=== PATIENT | female | born 1940 | race Caucasian/White ===

== ENCOUNTER 2016-09-17 20:28 | Inpatient (IN) | payer MEDICARE, BC ==
[~2016-09-17] VITALS: Ht 156.2 cm; Wt 85.0 kg
[~2016-09-17 20:28] MED LIST: ASPIRIN 81 MG E81 MG PO; BAYER CHEWABLE81 MG PO; BENICAR20 MG PO; LEVAQUIN250 MG PO; LOMOTIL TABLET1 TAB PO; NORCO 10/325 TA1 TA1 PO; PLAVIX75 MG PO; PREDNISONE10 MG PO; ROBAXIN-750750 MG PO
[2016-09-17 21:45] LABS: BASOPHILS 0.1 % (0.0-2.0); EOSINOPHILS 0.2 % (0-7); HEMATOCRIT 46.3 % (36.0-48.0); HEMOGLOBIN 15.4 g/dL (12-16); IMMATURE GRANULOCYTES 0.3 % (0-5); LYMPHOCYTES 11.2 % (15-50); MCH 29.8 pg (26.0-34.0); MCHC 33.3 g/dL (31.0-37.0); MCV 89.6 fL (80.0-100.0); MEAN PLATELET VOLUME 9.9 fL (7.4-10.4); MONOCYTES 8.3 % (2-11); NEUTROPHILS 79.9 % (40-80); PLATELET COUNT 271 10x3/uL (130-400); RBC 5.17 10x6/uL (4.00-5.40); RDW 14.5 % (11.5-14.5); WBC 18.5 10x3/uL (4.8-10.8)
[2016-09-17 22:12] LABS: APPEARANCE HAZY (CLEAR); BILIRUBIN NEGATIVE (NEGATIVE); COLOR STRAW (YELLOW); GLUCOSE 250 mg/dL (NEGATIVE); KETONE NEGATIVE (NEGATIVE); LEUKOCYTE ESTERASE TRACE (NEGATIVE); NITRITE NEGATIVE (NEGATIVE); PROTEIN 1+ mg/dL (NEGATIVE); UROBILINOGEN NORMAL (NORMAL)
[2016-09-17 22:13] LABS: BACTERIA MANY /hpf (NONE SEEN)
[2016-09-17 22:17] LABS: ALBUMIN 3.6 g/dL (3.4-5.0); ANION GAP 13.3 mmol/L (8-16); BILIRUBIN - TOTAL 0.42 mg/dL (0.2-1.3); CALCIUM 9.8 mg/dL (8.5-10.1); CARBON DIOXIDE 27.3 mmol/L (21.0-32.0); CREATININE - SERUM 1.1 mg/dL (0.6-1.3); POTASSIUM - SERUM 4.6 mmol/L (3.5-5.1); PROTEIN - SERUM 7.7 g/dL (6.4-8.2)
[2016-09-18] VITALS (13 sets, daily range): BP systolic 102–148; BP diastolic 54–74; Ht 156.2 cm; Wt 85.0 kg
[2016-09-18] MEDS ORDERED: GLIMEPIRIDE1 MG PO (00:01)
--- NOTE | 2016-09-18 00:46 | NUR ---
PATIENT RECEIVED TO ROOM FROM ER VIA WHEELCHAIR WITH HOSPITAL STAFF. AAOX4. RR EVEN AND UNLABORED. 0 S/S OF DISTRESS. IMMOBILIZER TO RUE. IV TO LEFT AC PATENT WITH NO REDNESS OR SWELLING. ADMIT COMPLETE AND PATIENT ORIENTED TO ROOM AND CALL LIGHT. DILAUDID GIVEN FOR PAIN OF AN 8/10 PER ORDER. WILL REASSESS. NO OTHER NEEDS AT THIS TIME.
--- NOTE | 2016-09-18 06:09 | NUR ---
DILAUDID GIVEN FOR PAIN. WILL REASSESS.
--- NOTE | 2016-09-18 07:30 | NUR ---
PT LYING IN BED WITH NO ACUTE DISTRESS DOES COMPLAIN OF PAIN TO RIGHT SHOULDER WILL GIVE DILAUDID PER IV INJECTION ORDERED. SLING IN PLACE
--- NOTE | 2016-09-18 07:45 | NUR ---
PATIENT LAYING ON HER BACK IN BED. FACE GRIMMACED. PATIENT USING A GREEN ORAL CARE SWAB WETTING HER MOUTH. PATIENT STATED SHE IS WAITING FOR SURGERY. PATIENT DENIES NEEDS. BED IN LOWEST POSITION, CALL LIGHT IN REACH. BED RAILS UP X'S 2.
--- NOTE | 2016-09-18 08:30 | NUR ---
BIOMETRICS SPECIALIST ROUNDS PER DR HUGHES AWAITING LAB WORK TO DETERMINE IF SURGERY TODAY POSSIBLE. PAIN CONTROLLED AT THIS TIME
[2016-09-18 09:58] LABS: BASOPHILS 0.2 % (0.0-2.0); EOSINOPHILS 0.6 % (0-7); HEMATOCRIT 43.2 % (36.0-48.0); HEMOGLOBIN 13.8 g/dL (12-16); IMMATURE GRANULOCYTES 0.2 % (0-5); LYMPHOCYTES 24.6 % (15-50); MCH 29.2 pg (26.0-34.0); MCHC 31.9 g/dL (31.0-37.0); MCV 91.3 fL (80.0-100.0); MEAN PLATELET VOLUME 10.3 fL (7.4-10.4); MONOCYTES 10.9 % (2-11); NEUTROPHILS 63.5 % (40-80); PLATELET COUNT 256 10x3/uL (130-400); RBC 4.73 10x6/uL (4.00-5.40); RDW 14.8 % (11.5-14.5)
[2016-09-18 10:09] LABS: WBC 12.4 10x3/uL (4.8-10.8)
[2016-09-18 10:22] LABS: ALBUMIN 3.3 g/dL (3.4-5.0); ANION GAP 13.7 mmol/L (8-16); BILIRUBIN - TOTAL 0.59 mg/dL (0.2-1.3); CALCIUM 8.9 mg/dL (8.5-10.1); CARBON DIOXIDE 23.6 mmol/L (21.0-32.0); CREATININE - SERUM 1.1 mg/dL (0.6-1.3); POTASSIUM - SERUM 4.3 mmol/L (3.5-5.1); PROTEIN - SERUM 6.6 g/dL (6.4-8.2)
--- NOTE | 2016-09-18 12:00 | NUR ---
PT RESTING IN BED NO ACUTE DISTRESS NOTED APPLIED O2 2LPM FOR DECREASED O2 SAT OF 87% ON ROOM AIR. HAS HX OF COPD.
--- NOTE | 2016-09-18 14:00 | NUR ---
PT TO GO TO OR FOR SURGICAL REPAIR OF RIGHT HUMEROUS HEAD FRACTURE. CONSENTS SIGNED PER DAUGHTER AND PREOP MEDS GIVEN
--- NOTE | 2016-09-18 14:10 | NUR ---
TO OR AT THIS TIME
--- NOTE | 2016-09-18 17:15 | NUR ---
PT READY TO TRANSFER TO ICU. ICU NURSE UNAVAILABLE TO TAKE REPORT. SHE IS TO CALL TO GET REPORT.
--- NOTE | 2016-09-18 17:35 | NUR ---
PT ARRIVED BY BED TO ROOM. SWITCHED OVER TO ICU BED. PLACED ON ICU MONITORS. RIGHT ARM IN SLING. BLOCK TO RIGHT SHOULDER INFUSING AT 6ML/HR. PT DENIES PAIN AT THIS TIME. PT IS DROWSY, BUT DOES FOLLOW COMMANDS AND ORIENTED TO PERSON. BILATERAL SCDs PLACED. LEFT AC PIV SALINE LOCKED AT THIS TIME. ICE PACK PLACED TO RIGHT SHOULDER. DRESSING IS C/D/I.
--- NOTE | 2016-09-18 18:05 | NUR ---
RESP THERAPY AT BEDSIDE. PT PLACED ON BIPAP 27/03.
--- NOTE | 2016-09-18 18:34 | NUR ---
16FR BRODERICK CATH PLACED WITHOUT DIFFICULTY. SAMPLE SENT TO LAB FOR UA
--- NOTE | 2016-09-18 18:47 | NUR ---
DR. RODRIGUES AT BEDSIDE. UPDATED ON PT'S STATUS.
[2016-09-18 19:16] LABS: APPEARANCE CLOUDY (CLEAR); BILIRUBIN NEGATIVE (NEGATIVE); COLOR YELLOW (YELLOW); GLUCOSE NEGATIVE (NEGATIVE); KETONE NEGATIVE (NEGATIVE); LEUKOCYTE ESTERASE 2+ (NEGATIVE); NITRITE POSITIVE (NEGATIVE); PROTEIN 1+ mg/dL (NEGATIVE); UROBILINOGEN NORMAL (NORMAL)
[2016-09-18 19:17] LABS: BACTERIA MANY /hpf (NONE SEEN); EPITHELIAL CELLS 0-5 /hpf (0-5); RED CELLS - URINE 0-5 /hpf (0-5); WHITE CELLS - URINE 25-50 /hpf (0-5)
--- NOTE | 2016-09-18 20:00 | NUR ---
2000: Pt rec'd resting HOB 30 degrees with eyes closed. Open briefly to verbal and nods head to questions. Pt moves x4 extrem weakly vs gravity. Pt grimmances with movement. S1S2 ST 110's on CM. Left PIV saline locked at this time. Pt UE PPPx2 = bilat. Pt feet dry and pulses obtained via doppler. Lungs with crackles heard in upper bases bilat with decreased based with auscultation. MMP and no cyanosis noted. ABD soft NT BS hypoactive x4. Dominguez to gravity with cloudy yellow UOP. SCDs on.
--- NOTE | 2016-09-18 22:00 | NUR ---
2200: Pt opens eyes to verbal and answers questions. Pt denies pain at this time. Pt remains with nerve block connected to CADD pump. Pt remains on Bipap with RR 14-16x with SPO2 97%. Dressing remains C/D/I.
[2016-09-19] VITALS (26 sets, daily range): BP systolic 79–152; BP diastolic 54–73
--- NOTE | 2016-09-19 02:15 | NUR ---
0215: Pt remains on Bipap 45% with RR16x with SPO2 97%. Pt opens eyes to verbal at this time and answers questions. Pt remains awake with questions, but quickly returns to sleep without stimulation. Pt remains with CADD pump with dressing intact. Right shoulder drsg intact with no s/s of bleeding or oozing. Pt does not c/o pain at this time.
--- NOTE | 2016-09-19 04:00 | NUR ---
0400: Pt awake and requesting to remove Bipap. Bipap mask off and pt placed on 026LNC to maintain SPO2 >92%. Pt oriented and answering all questions at this time. Encouraged DBC. Pt with strong non productive cough at this time.
[2016-09-19 05:45] LABS: BASOPHILS 0.1 % (0.0-2.0); EOSINOPHILS 0 % (0-7); HEMATOCRIT 41.6 % (36.0-48.0); IMMATURE GRANULOCYTES 0.2 % (0-5); LYMPHOCYTES 5.1 % (15-50); MCH 28.8 pg (26.0-34.0); MCHC 31.3 g/dL (31.0-37.0); MCV 92.2 fL (80.0-100.0); MONOCYTES 4.2 % (2-11); NEUTROPHILS 90.4 % (40-80); PLATELET COUNT 244 10x3/uL (130-400); RBC 4.51 10x6/uL (4.00-5.40); RDW 15.3 % (11.5-14.5); WBC 12.1 10x3/uL (4.8-10.8)
--- NOTE | 2016-09-19 06:00 | NUR ---
0600: Pt resting HOB 45 degrees with eyes open. Pt is alert and oriented. Pt w/o c/o at this time. Provided water per request. No difficulty with swallow. Pt remains ST 110's on CM. Pt remains on 026LNC with SPO2 97%. Encouraged DBC. No change in incision site from previous assessment.
[2016-09-19 06:05] LABS: ANION GAP 15.5 mmol/L (8-16); BILIRUBIN - TOTAL 0.6 mg/dL (0.2-1.3); CALCIUM 8.3 mg/dL (8.5-10.1); CARBON DIOXIDE 23.5 mmol/L (21.0-32.0); CREATININE - SERUM 1.3 mg/dL (0.6-1.3); MAGNESIUM - SERUM 1.9 mg/dL (1.8-2.4); PROTEIN - SERUM 6.8 g/dL (6.4-8.2); TROPONIN-I 0.026 ng/mL (0.000-0.060)
--- NOTE | 2016-09-19 07:15 | NUR ---
REPORT RECIEVED FROM MORTGAGE UNDERWRITER NURSE. PT RESTING IN BED WITH EYES CLOSED. RESPONDS TO VERBAL COMMANDS. ALERT AND ORIENTED. INTERSCALENE EPIDURAL INFUSING FENTANYL AT 6ML/HR. DENIES PAIN AT THIS TIME. DRESSING TO R SHOULDER C/D/I. ARM IN SLING. O2 AT 6L VIA NC. EXP WHEEZING NOTED TO UPPER LOBES BILAT. F/C PATENT WITH GABRIELLE COLORED URINE. SCDS ON. CALL LIGHT IN REACH. DENIES NEEDS AT THIS TIME. VSS. WILL CONTINUE TO ASSESS FOR CHANGES.
--- NOTE | 2016-09-19 08:30 | NUR ---
DR. DUARTE CALLED IN REGARDS TO PLAVIX ORDER DUE TO PT HAVING AN INTERSCALENE NERVE BLOCK FENTYNL INFUSION. STATED TO CONTACT DR. HUGHES IN REGARDS TO ADMINISTRATION. DR. HUGHES CALLED AND STATED TO CALL CARDIOLOGY AND GET THEIR OPINION. SPOKE WITH DR. FITZGERALD AND HE STATED IF STENT WAS LESS THAN SIX MONTHS AGO TO GIVEN PLAVIX IF NOT LESS THAN SIX MONTHS AGO TO HOLD PLAVIX. WILL NOTIFY DR. HUGHES.
--- NOTE | 2016-09-19 09:00 | NUR ---
DAUGHTER AT BEDSIDE. DENIES NEEDS AT THIS TIME. WILL CONTINUE TO ASSESS.
--- NOTE | 2016-09-19 14:17 | NUR ---
Is the patient Alert and Oriented? Yes 0 * How many steps to enter\exit or inside your home? RAMP 0 * PCP DR. NEAL 0 * Pharmacy [facility] 0 * Preadmission Environment Home Alone 0 * ADLs Independent 0 * Equipment Cane Rolling Walker 0 * List name and contact numbers for known caregivers / representatives who currently or will assist patient after discharge: DAUGHTER: MANJU RIBERA [phone] 0 * Community resources currently utilized None 0 * Additional services required to return to the preadmission environment? Yes 0 * Can the patient safely return to the preadmission environment? No 0 * Has this patient been hospitalized within the prior 30 days at any hospital? No PATIENT WAS LIVING AT HOME PRIOR TO COMING TO THE HOSPITAL. HER DAUGHTER, BACILIO NUNES IS NOW HER POA AND AT BEDSIDE. PATIENT STATES HER PCP IS DR. NEAL. SHE GETS HER MEDS FROM THE [facility]. PATIENT HAS A CANE AND WALKER. SHE DENIES EVER HAVING HOME HEALTH. THERE IS A RAMP TO ENTER HER HOME. PATIENT'S FAMILY WOULD LIKE FOR PATIENT TO GO TO INPATIENT REHAB AT DISCHARGE. CM TO FOLLOW.
--- NOTE | 2016-09-19 15:00 | NUR ---
TURNED AND REPOSITIONED IN THE BED. FRESH ICE WATER PLACED ON BEDSIDE TABLE. WILL CONTINUE TO ASSESS.
--- NOTE | 2016-09-19 15:00 | NUR ---
DAUGHTER AT BEDSIDE. ADVANCE DIRECTIVE DOCUMENTS FILLED PER PT. COPY PLACED ON CHART AND NOTARIZED.
--- NOTE | 2016-09-19 17:00 | NUR ---
PT FINISHED WITH DINNER. 100% INTAKE. REPOSITIONED FOR COMFORT. PILLOWS PLACED UNDER EXT FOR SUPPORT. DENIES PAIN OR NEEDS AT THIS TIME. WILL CONTINUE TO ASSESS. CALL LIGHT IN REACH. BED IN LOW POSITION.
--- NOTE | 2016-09-19 20:00 | NUR ---
2000: Pt rec'd resting HOB 30 degrees with eyes open, PUPILS JAXSON+ bilat, alert and oriented. Pt denies pain at this time. SMCx4 = bilat per diem nurse with commands. Pt breathing 025LNC with RR 16-18x with SPO2 94%. Lungs with expiratory snoring in upper lung feilds with auscultation and decreased bases bilat. Encouraged DBC. Pt with strong non productive cough with command. S1S2 regular ST 110-115bpm on CM. Pt radial pulses palpable bilat. Pt lower extrem pulses difficult to obtain with palpation. Doppler used. Left AC PIV with NS TKVO. ABD soft NT BS active x4. Dominguez to gravity with approx 30 cc/hr cloudy yellow UOP. Right shoulder dressing intact with no s/s of bleeding or oozing. Epidural CADD seen from dressing dorsal to incision. No leaks seen or assessed. Pt denies pain, tingling, numbness, or parasthesia.
--- NOTE | 2016-09-19 23:55 | NUR ---
2355: Pt resting HOB 30 degrees with eyes closed. Open to verbal. No change in RESP/CV/NV status. Pt denies pain, tingling, numbness, or parasthesia. Pt remains ST on CM. Continues breathing 025LNC with SPO2 94%.
[2016-09-20] VITALS (23 sets, daily range): BP systolic 108–175; BP diastolic 7–126
--- NOTE | 2016-09-20 02:59 | NUR ---
0300: Pt awake, alert, and oriented. Pt denies pain, tingling, or numbness. No change in IVF/UOP. Remains SR 90's on CM at this time. Pt remains on 025LNC with shallow respirations 16-18x. Encouraged DBC. Pt using EZPAP with RT in room without difficulty.
--- NOTE | 2016-09-20 05:45 | NUR ---
0545: Pt easily arousable to verbal stimuli. Pt w/o c/o at this time. No change in RESP/CV/NV status. Pt remains SR 90's on CM. Breathing 16x 025LNC with SPO2 95%.
[2016-09-20 06:23] LABS: BASOPHILS 0.1 % (0.0-2.0); EOSINOPHILS 0 % (0-7); HEMATOCRIT 36.5 % (36.0-48.0); HEMOGLOBIN 11.6 g/dL (12-16); IMMATURE GRANULOCYTES 0.3 % (0-5); LYMPHOCYTES 7.5 % (15-50); MCH 28.9 pg (26.0-34.0); MCHC 31.8 g/dL (31.0-37.0); MEAN PLATELET VOLUME 9.9 fL (7.4-10.4); MONOCYTES 10.6 % (2-11); NEUTROPHILS 81.5 % (40-80); PLATELET COUNT 224 10x3/uL (130-400); RBC 4.01 10x6/uL (4.00-5.40); RDW 14.7 % (11.5-14.5); WBC 15.4 10x3/uL (4.8-10.8)
[2016-09-20 06:50] LABS: ALBUMIN 2.9 g/dL (3.4-5.0); BILIRUBIN - TOTAL 0.49 mg/dL (0.2-1.3); CARBON DIOXIDE 25.6 mmol/L (21.0-32.0); POTASSIUM - SERUM 4.6 mmol/L (3.5-5.1); PROTEIN - SERUM 6.6 g/dL (6.4-8.2)
--- NOTE | 2016-09-20 10:00 | NUR ---
SURGERY SALES SERVICE PROFESSIONAL AT BEDSIDE FOR ASSESSMENT - PLAN OT REMOVE INTERSKALENE BLOCK, PT TO AMBULATE PT IF POSSIBLE. WILL CONTINUE TO MONITOR
--- NOTE | 2016-09-20 10:08 | NUR ---
PT AT BEDSIDE TO ASSIST PT UP TO CHAIR - SEE PT FLOW SHEET
--- NOTE | 2016-09-20 10:45 | NUR ---
AHESTHESIA AUTOMOTIVE PARTS COUNTER ASSOCIATE AT BEDSIDE TO REMOVE INTERSKALEEN BLOCK. SITE COVERED WITH BANDAID - INSTRUCTED PT TO NOTIFY THIS RN IF PT NOTICES PAIN INCREASING. WILL CONTINE TO MONITOR AND CONT. POC.
--- NOTE | 2016-09-20 12:00 | NUR ---
PT SITTING UP IN CHAIR - EATING LUNCH - FAMILY VISITING - PT VOICED NO CONCERNS.
--- NOTE | 2016-09-20 13:51 | NUR ---
Pt TRANSERRED TO BED BY PT - PT RESTING WITH ARM IN SLING - AA&OX4. DENIES ANY PAIN. ENCOURAGED PT TO NOTIFY RN FOR PAIN ASSESSMENT. WILL CONT. PLAN OF CARE.
--- NOTE | 2016-09-20 13:57 | NUR ---
MOVED B/P CUFF TO RIGHT LOWER EXT. DUE TO IMPEDING ON LEFT AC IV.
--- NOTE | 2016-09-20 13:59 | NUR ---
DR. RODRIGUES PLANS TO HAVE BRONCH 09/21/2016. PT/FAMILY AWARE.
--- NOTE | 2016-09-20 18:00 | NUR ---
FAMILY AT BEDSIDE - ASSISTED PT WITH GROOMING -
--- NOTE | 2016-09-20 18:03 | NUR ---
PT CONTINUES TO DENY OR WANT PAIN MEDICATION - WILL CONT. POC
--- NOTE | 2016-09-20 20:00 | NUR ---
2000: Pt rec'd resting HOB 30 degrees with eyes open, PUPILS JAXSON+ bilat, alert and oriented. Pt denies pain at this time. SMCx4 = bilat rn visiting with commands. Pt breathing 026LNC with RR 16-18x with SPO2 94%. Lungs with expiratory wheezes in upper lung feilds with auscultation and decreased bases bilat. Encouraged DBC. Pt with strong non productive cough with command. S1S2 regular SR 90-95 bpm on CM. Pt radial pulses palpable bilat. Pt lower extrem pulses difficult to obtain with palpation. Doppler used. Left AC PIV with NS TKVO. ABD soft NT BS active x4. Dominguez to gravity with approx 30 cc/hr cloudy yellow UOP. Right shoulder dressing intact with no s/s of bleeding or oozing. Pt denies pain, tingling, numbness, or parasthesia.
--- NOTE | 2016-09-20 20:00 | NUR ---
2000: REVIEWED PLANNED BRONCHOSCOPY PROCEDURE WITH PATIENT. REVIEWED EXPECTED BENIFITS AND RISKS WITH PATIENT. PT VERBALIZED UNDERSTANDING AND GAVE VERBAL PERMISSION FOR CONSENT. PT UNABLE TO SIGN CONSENT BC SHE IS RIGHT HANDED AND UNABLE TO USE RIGHT HAND R/T RECENT SURGERY. PT WAS ABLE TO INTIAL CONSENT.
--- NOTE | 2016-09-20 20:30 | NUR ---
2030: LEFT ARM PIV LEAKING WHEN FLUSHED AT THIS TIME. PIV REMOVED AND NEW LEFT FA PIV STARTED AFTER MULTIPLE ATTEMPTS TO LEFT FOREARM WITH 22G IV CATH. NS CONNECTED AT 10 CC/HR.
--- NOTE | 2016-09-20 21:00 | NUR ---
2100: PT REPOSITIONED IN HOB >30 DEGREES AT THIS TIME WITH RIGHT ARM SUPPORTED WITH PILLOW SUPPORT. ORDERED MEDICATIONS ADMIN WITHOUT DIFFICULTY. PT HAS NO DIFFICULTY WITH SWALLOW AT THIS TIME.
[2016-09-21] VITALS (21 sets, daily range): BP systolic 101–186; BP diastolic 64–107
--- NOTE | 2016-09-21 | NUR ---
0000: Pt resting with eyes closed at this time. Easily arousable to verbal. Remains SR 80's on CM. Pt remains 026LNC with RR16x with SPO2 94%. No change in IVF/UOP at this time.
--- NOTE | 2016-09-21 02:00 | NUR ---
0200: Pt awake asking to "remove all this stuff." Pt restless in bed. Pt is oriented and alert. Pt partial linen change at this time and repositioned for comfort. Pt SCD's removed per request. All lines and monitors straightend. Pt states; "Thank you, everything was just getting to tight." Reassured patient and adjusted room enviroment. Pt returned to resting with eyes closed.
[2016-09-21 05:31] LABS: BASOPHILS 0 % (0.0-2.0); EOSINOPHILS 0 % (0-7); HEMATOCRIT 37.3 % (36.0-48.0); HEMOGLOBIN 11.7 g/dL (12-16); IMMATURE GRANULOCYTES 0.5 % (0-5); LYMPHOCYTES 7.6 % (15-50); MCH 28.9 pg (26.0-34.0); MCHC 31.4 g/dL (31.0-37.0); MCV 92.1 fL (80.0-100.0); MEAN PLATELET VOLUME 10.5 fL (7.4-10.4); MONOCYTES 6.7 % (2-11); NEUTROPHILS 85.2 % (40-80); PLATELET COUNT 234 10x3/uL (130-400); RBC 4.05 10x6/uL (4.00-5.40); RDW 14.9 % (11.5-14.5); WBC 13.2 10x3/uL (4.8-10.8)
[2016-09-21 05:44] LABS: APTT 26.3 SECONDS (22.8-39.4); INR 1.08 (0.85-1.17); PROTIME 13.9 SECONDS (11.6-15.0)
[2016-09-21 05:55] LABS: ALBUMIN 2.9 g/dL (3.4-5.0); BILIRUBIN - TOTAL 0.35 mg/dL (0.2-1.3); CARBON DIOXIDE 24.9 mmol/L (21.0-32.0); CREATININE - SERUM 1.1 mg/dL (0.6-1.3); PROTEIN - SERUM 7.1 g/dL (6.4-8.2)
[2016-09-21 05:57] LABS: ANION GAP 14.5 mmol/L (8-16); POTASSIUM - SERUM 5.4 mmol/L (3.5-5.1)
--- NOTE | 2016-09-21 06:00 | NUR ---
0600: PT RESTING WITH EYES CLOSED. OPEN TO VERBAL. PT IS ALERT AND ORIENTED. PT REMAINS SR ON CM. NO CHANGE IN IVF/UOP AT THIS TIME. PT REMAINS RR16X WITH SPO2 95% WITH 026LNC.
--- NOTE | 2016-09-21 07:00 | NUR ---
0730- REC'D PT AAO X4 LAYING IN BED. ASSESSMENT COMPLETE. SEE FLOWSHEET. LEFT PIV INTACT WITH NS @ 10 CC/HR INFUSING. BRODERICK CATHETER IN PLACE DRAINING YELLOW URINE. 0950- DR RODRIGUES AT BEDSIDE. BRONCHOSCOPY PLANNED FOR BEDSIDE. 1130- PT ON BIPAP PER ABG'S. 1350- BIPAP OFF. PT UP TO CHAIR PER P/T. 1520- BED BATH AND LINEN CHANGE COMPLETE. 1750- PT SITTING UP IN BED, EATING DINNER TRAY. DENIES PAIN OR NEEDS AT THIS TIME.
--- NOTE | 2016-09-21 19:52 | NUR ---
REPORT RECEIVED AND SHIFT ASSESSMENT COMPLETED. PT REPORTED A PAIN LEVEL OF 5 IN RIGHT SHOULDER FROM HER PROCEDURE. MEDICATION PROVIDED ORDERED. WILL REASSESS PAIN LEVEL AT 1957. PT HAS DRESSING ON RIGHT SHOULDER FROM SURGERY. DRESSING IS CDI. PT IS ALERT AND ORIENTED. WILL CONTINUE TO MONITOR.
--- NOTE | 2016-09-21 21:00 | NUR ---
PT RESTING IN ROOM. NO CHANGES IN STATUS AT THIS TIME. VSS WILL CONTINUE TO MONITOR.
--- NOTE | 2016-09-21 22:50 | NUR ---
2100 MEDS ADMINISTERED DURING 2100 HOUR. 2229 FSBS TAKEN. 267 SUGAR. 6 UNITS HUMALOG GIVEN PER SLIDING SCALE. VSS WILL CONTINUE TO MONITOR.
--- NOTE | 2016-09-21 23:00 | NUR ---
REASSESSMENT COMPLETED SEE ASSESSMENT FOR FULL DETAILS. PT RESTING IN ROOM. NO CHANGES IN STATUS AT THIS TIME. WILL CONTINUE TO MONITOR. PT IN VIEW OF NURSES STATION.
[2016-09-22] VITALS (13 sets, daily range): BP systolic 114–169; BP diastolic 64–88
--- NOTE | 2016-09-22 01:00 | NUR ---
PT RESTING IN ROOM. VSS. NO CHANGES IN STATUS AT THIS TIME. WILL CONTINUE TO MONITOR.
--- NOTE | 2016-09-22 03:07 | NUR ---
REASSESSMENT COMPLETED. SEE ASSESSMENT FOR FULL DETAILS. PT RESTING IN ROOM. SIDERAILS UP X2 VSS. WILL CONTINUE TO MONITOR.
[2016-09-22 05:44] LABS: BASOPHILS 0.1 % (0.0-2.0); EOSINOPHILS 0 % (0-7); HEMATOCRIT 37.5 % (36.0-48.0); HEMOGLOBIN 11.6 g/dL (12-16); IMMATURE GRANULOCYTES 0.7 % (0-5); LYMPHOCYTES 9.1 % (15-50); MCH 28.7 pg (26.0-34.0); MCHC 30.9 g/dL (31.0-37.0); MCV 92.8 fL (80.0-100.0); MEAN PLATELET VOLUME 10.8 fL (7.4-10.4); MONOCYTES 8.1 % (2-11); PLATELET COUNT 244 10x3/uL (130-400); RBC 4.04 10x6/uL (4.00-5.40); WBC 10.4 10x3/uL (4.8-10.8)
[2016-09-22 05:57] LABS: ALBUMIN 2.9 g/dL (3.4-5.0); ANION GAP 12.2 mmol/L (8-16); BILIRUBIN - TOTAL 0.34 mg/dL (0.2-1.3); CALCIUM 8.6 mg/dL (8.5-10.1); CARBON DIOXIDE 26.8 mmol/L (21.0-32.0); PROTEIN - SERUM 6.5 g/dL (6.4-8.2)
--- NOTE | 2016-09-22 07:15 | NUR ---
REPORT RECIEVED FROM CLINICAL LAB CLERK NURSE. PT RESTING IN BED QUIETLY. NO S/SX OF ACUTE DISTRESS NOTED AT THIS TIME. RESP EVEN AND UNLABORED. RECIEVING O2 AT 6L VIA NC. DENIES PAIN AT THIS TIME. DRESSING TO RIGHT SHOULDER C/D/I. ARM ELEVATED ON PILLOW. SHIFT ASSESSMENT COMPLETE PER FLOWSHEET. CALL LIGHT IN REACH. BED IN LOW POSITION. WILL CONTINUE TO ASSESS FOR CHANGES.
--- NOTE | 2016-09-22 09:15 | NUR ---
PT ASSITED TO CHAIR PER PT. TOLERATED WELL. WILL CONT TO ASSESS.
--- NOTE | 2016-09-22 09:34 | NUR ---
Nutrition follow-up: Diet: Regular PO intake ~75% average of last 9 meals Labs reviewed Wt: 200# PO intake is good at this time. RDN following.
--- NOTE | 2016-09-22 11:00 | NUR ---
PT EATING LUNCH IN CHAIR. DENIES NEEDS AT THIS TIME. CALL LIGHT IN REACH. WILL CONTINUE TO ASSESS.
--- NOTE | 2016-09-22 12:00 | NUR ---
ASSISTED BACK TO BED WITH THE HELP OF PT. CALL LIGHT IN REACH. TOTAL LINEN CHANGE PROVIDED. EXT'S ELEVATED ON PILLOWS. STATES SHE IS COMFORTABLE. ICE WATER PLACED IN REACH ALONG WITH PERSONAL BELONGINGS. WILL CONTINUE TO ASSESS.
--- NOTE | 2016-09-22 13:00 | NUR ---
REPOSITIONED FOR COMFORT. DENIES NEEDS.
--- NOTE | 2016-09-22 14:12 | NUR ---
REPORT CALLED [facility] ON [facility]. WILL TRASFER PT VIA W/C WITH THE ASSIST OF PT.
--- NOTE | 2016-09-22 14:30 | NUR ---
PT TAKEN VIA W/C TO [facility]. PT SETTLED IN ROOM. CALL LIGHT PLACED IN REACH. FAMILY AT BEDSIDE.
--- NOTE | 2016-09-22 14:52 | OP ---
PATIENT NAME: NELA HERNANDEZ MEDICAL RECORD: [id number] :38 LOCATION:[facility] [id number] ADMISSION DATE:09/18/16 SURGEON: NINA HUGHES MD DATE OF OPERATION: 09/18/2016 PREOPERATIVE DIAGNOSIS: A 4-part proximal humerus fracture of the right shoulder. POSTOPERATIVE DIAGNOSIS: A 4-part proximal humerus fracture of the right shoulder. PROCEDURE: Hemiarthroplasty of the right shoulder - Tornier. SURGEON: Nina Hughes MD ANESTHESIA: General. INTRAOPERATIVE COMPLICATIONS: None. SUMMARY OF PATHOLOGIC FINDINGS: As predicted on preoperative radiographs, the patient had a 4-part proximal humerus fracture, head splitting with greater and lesser tuberosities split as well. IMPLANTS USED: Tornier fracture hemiarthroplasty stem size 6.5 with a x 43 humeral head replacement. OPERATIVE SUMMARY IN DETAIL: After obtaining the appropriate preoperative orthopedic surgery consent as well as anesthetic consultation, evaluation and clearance, the patient was brought to the operating room and placed on the operating table in supine position. After adequate general laryngeal mask was administered, the patient was placed in the beach chair position. All pressure points were well padded. She was held firmly to the operating table using the vacuum pack suction system. Right upper extremity and shoulder were then prepped and draped in routine sterile fashion. The arm was held in Trimano arm holding device. Deltopectoral incision was made, taken down to the level of the clavipectoral fascia, which was incised. The deltoid was gently retracted over the broken proximal humerus using the brown retractor. The conjoined tendon was gently retracted medially. The fracture was identified. The greater and lesser tuberosities were tagged and controlled while the split articular fragments were removed. The cavity was copiously irrigated and all bone fragments were removed. Serial and sequential reaming and broaching were done. The patient did take the smallest size stem. The trial was put into place and thought to be perfect. The cement restrictor was put into place. The proximal canal was copiously irrigated and dried. The final component was cemented into place at 30 degrees of retroversion with the humeral head attached. This was reduced into the glenohumeral joint. The greater and lesser tuberosities were brought around back and in front. These were reapproximated using through stem, through bone, using a FiberWire. Having completed this, the deltopectoral incision was irrigated further and closed with #1 Vicryl followed by 2-0 Vicryl and skin inder. Sterile dressings were applied. The patient was awakened and taken to the recovery room in stable condition. All final needle and sponge counts were correct. TRANSINT:[id number] Voice Confirmation ID: [id number] DOCUMENT ID: [id number] OPERATIVE REPORT [id number] NELA HERNANDEZ MD, NINA MCKEE at 1452 CC: [id number] DICTATION DATE: 09/18/16 1640 CHEESE MAKER: 09/18/16 1822 ADM IN [facility] [address] [phone]
--- NOTE | 2016-09-22 15:00 | NUR ---
PT AWAKE AND ALERT NO DISTRESS NOTED RECIEVED TO ROOM FROM ICU SLING IN PLACE TO RIGHT ARM.
--- NOTE | 2016-09-22 15:42 | NUR ---
Patient Name: NELA HERNANDEZ Encounter No: [id number] : 1940 Primary Insurance: MEDICARE A & B Anticipated DC Date: UNKNOWN Planned Disposition: Home External Planned Provider: [facility] OP PT DCP follow-up note: CM RECEIVED CONSULT TO SPEAK WITH PT REGARDING POSSIBLE NEED FOR HOME DME EQUIPMENT. PT STATED SHE HAS ALL DME EQUIPMENT NEEDED AT HOME AND ALTHOUGH ORIGIONALLY HAD PLAN FOR IP REHAB, PT HAS NOW DECIDED SHE WOULD LIKE TO DC HOME AND GET OP PT FROM [facility]. SHE STATED SHE HAS HAD OP PT AT [facility] IN THE PAST AND HAD A GREAT EXPERIENCE. CM DISCUSSED WITH PT HER LIMITED AMOUNT OF [place] DISTANCE WITH PT WITH ADMISSION AND SAFETY OF DC HOME. SHE STATED THAT SHE THINKS SHE HAS ONLY BEING ABLE TO DO SO LITTLE WITH PT B/C SHE HAS BEEN IN THE ICU. SHE THINKS THAT SHE WILL BE ABLE TO PROGRESS WITH PT BEFORE DC AND THAT HOME WILL BE A SAFE DC PLAN. RUBÉN HAS RECEIVED NO MD ORDERS FOR OP PT AT THIS TIME, SO REFERRAL HAS NOT BEEN FAXED. WILL AWAIT DOCUMENTATION OF FURTHER PROGRESS WITH PT AND MD ORDERS. RUBÉN SPOKE WITH MARTY LEDEZMA RN, RUB[facility]N TO INFORM OF PT'S DC PLAN LISTED ABOVE, PT HAS NOW BEEN TRANSFERRED FROM ICU TO MED SURG UNIT. CASE MANAGEMENT WILL FOLLOW AND ASSIST WITH DC PLAN/NEEDS THEY ARISE. Bettie Wilkins RN
--- NOTE | 2016-09-22 18:23 | NUR ---
PT AWAKE AND ALERT ORINTED X 3 LUNGS WITH DIMINISHED SOUNDS NOTED.
--- NOTE | 2016-09-22 19:21 | NUR ---
LYING IN BED,WITHOUT DISTRESS.CALL LIGHT IN REACH
--- NOTE | 2016-09-22 20:26 | NUR ---
PRN PAIN MED GIVEN FOR C/O R ARM PAIN /, ALANA WELL, CL IN REACH
--- NOTE | 2016-09-22 21:07 | NUR ---
MEDS GIVEN PER MAR, ALANA WELL, SR'S UP X2, CL IN REACH
--- NOTE | 2016-09-22 23:20 | NUR ---
RESTING WITH EYES CLOSED, NC IN PLACE, HOB ELEVATED, NO DISTRESS NOTED, BRODERICK DRAINING, SR'S UP, CL IN REACH
[2016-09-23] VITALS: BP 166/70
--- NOTE | 2016-09-23 01:21 | NUR ---
CONTINUES TO REST WITH EYES CLOSED, NO DISTRESS NOTED, HOB ELEVATED, CL IN REACH
--- NOTE | 2016-09-23 03:10 | NUR ---
SOLUMEDROL GIVEN PER MAR, ALANA WELL, CL IN REACH
[2016-09-23 04:00] VITALS: BP 172/70
--- NOTE | 2016-09-23 05:16 | NUR ---
MEDS GIVEN PER MAR, ALANA WELL, SENIOR MECHANICAL DESIGN ENGINEER IN ROOM PERFORMING CATHETER CARE, PT DENIES NEEDS, CL IN REACH
[2016-09-23 06:34] LABS: BASOPHILS 0.1 % (0.0-2.0); EOSINOPHILS 0 % (0-7); HEMATOCRIT 38.7 % (36.0-48.0); IMMATURE GRANULOCYTES 1.7 % (0-5); LYMPHOCYTES 13.8 % (15-50); MCH 28.4 pg (26.0-34.0); MCV 91.7 fL (80.0-100.0); MEAN PLATELET VOLUME 10.4 fL (7.4-10.4); NEUTROPHILS 76.4 % (40-80); PLATELET COUNT 252 10x3/uL (130-400); RBC 4.22 10x6/uL (4.00-5.40); RDW 14.6 % (11.5-14.5); WBC 9.3 10x3/uL (4.8-10.8)
[2016-09-23 06:47] LABS: ALBUMIN 2.8 g/dL (3.4-5.0); ANION GAP 11.9 mmol/L (8-16); BILIRUBIN - TOTAL 0.44 mg/dL (0.2-1.3); CALCIUM 9.1 mg/dL (8.5-10.1); CARBON DIOXIDE 29.2 mmol/L (21.0-32.0); CREATININE - SERUM 0.9 mg/dL (0.6-1.3); POTASSIUM - SERUM 5.1 mmol/L (3.5-5.1); PROTEIN - SERUM 6.9 g/dL (6.4-8.2)
--- NOTE | 2016-09-23 07:20 | NUR ---
RECEIVED REPORT. ASSUMED CARE OF PATIENT. EYES OPEN, RESP EVEN AND UNLABORED, RECEIVING BREATHING TREATMENT AT THIS TIME. CALL LIGHT WITHIN REACH. NO DISTRESS.
[2016-09-23 08:28] VITALS: BP 144/66
--- NOTE | 2016-09-23 10:20 | NUR ---
DRESSING CHANGE PROVIDED AT THIS TIME TO RIGHT SHOULDER INCISION. AQUACELL SILVER DRESSING APPLIED ORDERED. TOLERATED DRESSING CHANGE WELL. NO DISTRESS.
[2016-09-23 11:49] VITALS: BP 157/58
[2016-09-23 15:45] VITALS: BP 161/70
[2016-09-23 16:12] LABS: AFB SPECIMEN PROCESSING Concentration (())
[2016-09-23 19:00] VITALS: BP 131/68
--- NOTE | 2016-09-23 20:22 | NUR ---
4 UNITS INSULIN GIVEN PER SLIDING SCALE FOR BS OF 247, ALANA WELL, CL IN REACH
--- NOTE | 2016-09-23 20:25 | NUR ---
ASSESSMENT COMPLETED, NO DISTRESS NOTED, DENIES NEEDS, CL IN REACH
--- NOTE | 2016-09-23 20:50 | NUR ---
MEDS GIVEN PER MAR, ALANA WELL, SR'S UP X2, CL IN REACH, WILL MONITOR
--- NOTE | 2016-09-24 01:33 | NUR ---
RESTING WITH EYES CLOSED, NC IN PLACE, HOB ELEVATED, NO DISTRESS NOTED, SR'S UP, CL IN REACH
[2016-09-24 04:00] VITALS: BP 157/59
[2016-09-24 05:54] LABS: BASOPHILS 0.1 % (0.0-2.0); EOSINOPHILS 0 % (0-7); HEMATOCRIT 40.2 % (36.0-48.0); HEMOGLOBIN 12.7 g/dL (12-16); IMMATURE GRANULOCYTES 2.9 % (0-5); LYMPHOCYTES 14.3 % (15-50); MCH 28.7 pg (26.0-34.0); MCHC 31.6 g/dL (31.0-37.0); MEAN PLATELET VOLUME 10.6 fL (7.4-10.4); MONOCYTES 8.1 % (2-11); NEUTROPHILS 74.6 % (40-80); PLATELET COUNT 261 10x3/uL (130-400); RBC 4.42 10x6/uL (4.00-5.40); RDW 14.3 % (11.5-14.5); WBC 7.7 10x3/uL (4.8-10.8)
[2016-09-24 06:12] LABS: ALBUMIN 2.8 g/dL (3.4-5.0); ANION GAP 12.3 mmol/L (8-16); BILIRUBIN - TOTAL 0.39 mg/dL (0.2-1.3); CALCIUM 8.8 mg/dL (8.5-10.1); CARBON DIOXIDE 30.9 mmol/L (21.0-32.0); CREATININE - SERUM 0.9 mg/dL (0.6-1.3); POTASSIUM - SERUM 5.2 mmol/L (3.5-5.1); PROTEIN - SERUM 6.4 g/dL (6.4-8.2)
--- NOTE | 2016-09-24 07:00 | NUR ---
REPORT RECIEVED ASSUMED CARE. PATIENT IN BED WITH IV INTACT. NO COMPLAINTS. CALL LIGHT WITHIN REACH.
[2016-09-24 08:17] VITALS: BP 150/94
[2016-09-24 11:17] LABS: FUNGUS STAIN Final report (())
[2016-09-24 13:55] VITALS: BP 157/72
[2016-09-24 16:05] VITALS: BP 156/67
--- NOTE | 2016-09-24 18:29 | NUR ---
PATIENT IN BED WITH IV INTACT. NO COMPLAINTS AT THIS TIME. BRODERICK INTACT. CALL LIGHT WITHIN REACH.
[2016-09-24 21:11] VITALS: BP 155/58
[2016-09-25 04:54] VITALS: BP 150/91
[2016-09-25 05:25] LABS: BASOPHILS 0.2 % (0.0-2.0); EOSINOPHILS 0 % (0-7); HEMATOCRIT 42.2 % (36.0-48.0); HEMOGLOBIN 13.4 g/dL (12-16); IMMATURE GRANULOCYTES 3.4 % (0-5); LYMPHOCYTES 11.5 % (15-50); MCH 28.6 pg (26.0-34.0); MCHC 31.8 g/dL (31.0-37.0); MEAN PLATELET VOLUME 10.3 fL (7.4-10.4); MONOCYTES 6.8 % (2-11); NEUTROPHILS 78.1 % (40-80); PLATELET COUNT 297 10x3/uL (130-400); RBC 4.69 10x6/uL (4.00-5.40); RDW 14.4 % (11.5-14.5)
[2016-09-25 05:37] LABS: APTT 22.9 SECONDS (22.8-39.4); INR 1.14 (0.85-1.17); PROTIME 14.5 SECONDS (11.6-15.0)
[2016-09-25 05:48] LABS: WBC 10.2 10x3/uL (4.8-10.8)
[2016-09-25 05:54] LABS: ALBUMIN 2.8 g/dL (3.4-5.0); BILIRUBIN - TOTAL 0.5 mg/dL (0.2-1.3); CALCIUM 8.5 mg/dL (8.5-10.1); CARBON DIOXIDE 31.2 mmol/L (21.0-32.0); CREATININE - SERUM 0.9 mg/dL (0.6-1.3); POTASSIUM - SERUM 5.2 mmol/L (3.5-5.1); PROTEIN - SERUM 6.3 g/dL (6.4-8.2)
--- NOTE | 2016-09-25 07:49 | NUR ---
LYING IN BED,WITHOUT DISTRESS.HOB 45 DEGREES.CALL LIGHT IN REACH,DOOR OPEN.
--- NOTE | 2016-09-25 08:09 | NUR ---
ASSESSMENT COMPLETE PT AWAKE AND ALERT ORINETED X 3 LUNGS WITH CRACKLES NOTED DIMINISHED BASES BILATERALLY HAS VERY DENSE SOUNDS TO LML. HRR NO ACUTE DISTRESS NTOED SURGICAL DRESSING IN PLACE TO UPPER RIGHT SHOULDER SURGERY SITE SLING IN PLACE WELL. NPO AT THIS TIME FOR POSSIBLE CT GUIDED THORACENTESIS AND POSSIBLE CHEST TUBE PLACEMENT.
--- NOTE | 2016-09-25 09:20 | NUR ---
CT THORACENTESIS ON HOLD DUE TO ELIQUIS ORDER PER DR SAUL BLAKE TO START HEPARIN AND HOLD ELIQUIS. ORDERED DIET FOR BREAKFAST. PT NOTIFIED THAT PROCEEDURE CHANGED TO THURSDAY DUE TO ELIQUIS. WILL MONITOR
[2016-09-25 10:05] VITALS: BP 176/72
[2016-09-25 13:08] VITALS: BP 154/72
--- NOTE | 2016-09-25 13:08 | NUR ---
PT SITTING UP IN BED WITH NO ACUTE DISTRESS NTOED VOICES ALL NEEDS TO STAFF. CALL LIGHT IN REACH SIDE RAILS UP X 2
--- NOTE | 2016-09-25 16:50 | NUR ---
PT AWAKE AND ALERT NO DISTRESS NOTED VOICES ALL NEEDS TO STAFF CALL LIGHT INREACH SIDE RAILS UP X 2
[2016-09-25 19:00] VITALS: BP 156/57
--- NOTE | 2016-09-25 20:30 | NUR ---
AWAKE ALERT. DRSG TO RIGHT SHOULDER DRY INTACT WITH NO DRAINAGE NTOED.NO NUMBNESS OR TINGLING NOETED. ABLE TO MOVE FINGERS FREELY. BRODERICK PATENT AND DRAINING CL YELLOW URINE. CL IN REACH
[2016-09-26] VITALS: BP 148/53
--- NOTE | 2016-09-26 00:20 | NUR ---
AROUSES EASILY TO VERBAL STIMULI. NO COMPLAINTS VOICED. NO DISTRESS NOTED.
--- NOTE | 2016-09-26 03:00 | NUR ---
EYES CLOSED RESP EVEN AND UNLAOBORED. NO DISTRESS NOTED. CL IN REACH.
[2016-09-26 04:00] VITALS: BP 115/64
--- NOTE | 2016-09-26 05:07 | NUR ---
PT IS AWAKE AND WATCHING THE NEWS. PLEASANT MOOD. NO DISTRESS NOTED. RESPIRATIONS EASY. THE BED IS LOW, RAILS UP X'S 2 WITH THE CALL LIGHT AT HAND.
[2016-09-26 06:05] LABS: BASOPHILS 0.1 % (0.0-2.0); EOSINOPHILS 0 % (0-7); HEMATOCRIT 42.4 % (36.0-48.0); HEMOGLOBIN 13.3 g/dL (12-16); IMMATURE GRANULOCYTES 3.6 % (0-5); LYMPHOCYTES 9.6 % (15-50); MCH 28.4 pg (26.0-34.0); MCHC 31.4 g/dL (31.0-37.0); MCV 90.4 fL (80.0-100.0); MEAN PLATELET VOLUME 10.5 fL (7.4-10.4); MONOCYTES 9.8 % (2-11); NEUTROPHILS 76.9 % (40-80); PLATELET COUNT 290 10x3/uL (130-400); RBC 4.69 10x6/uL (4.00-5.40); RDW 14.6 % (11.5-14.5); WBC 10.3 10x3/uL (4.8-10.8)
[2016-09-26 06:35] LABS: ALBUMIN 2.7 g/dL (3.4-5.0); ANION GAP 11.8 mmol/L (8-16); BILIRUBIN - TOTAL 0.5 mg/dL (0.2-1.3); CALCIUM 8.5 mg/dL (8.5-10.1); CARBON DIOXIDE 28.1 mmol/L (21.0-32.0); CREATININE - SERUM 0.9 mg/dL (0.6-1.3); POTASSIUM - SERUM 4.9 mmol/L (3.5-5.1); PROTEIN - SERUM 6.5 g/dL (6.4-8.2)
--- NOTE | 2016-09-26 09:00 | NUR ---
ASSESSMENT PER FLOW SHEET.PT WITHOUT DISTRESS.CALL LIGHT IN REACH
[2016-09-26 09:10] VITALS: BP 152/62
--- NOTE | 2016-09-26 11:11 | EC ---
PATIENT:NELA HERNANDEZ DATE OF SERVICE: 09/18/16 SEX: F MEDICAL RECORD: [id number] DATE OF : 38 LOCATION:[facility] AGE OF PATIENT: 76 ADMISSION DATE: 09/18/16 REFERRING PHYSICIAN: INTERPRETING PHYSICIAN: IZABELLA FAUSTIN MD ECHOCARDIOGRAM REPORT ECHO CHARGES 4 ECHO COMPLETE CLINICAL DIAGNOSIS: CHF HX OF HTN/STENT IN TO LEG ECHOCARDIOGRAPHIC MEASUREMENTS (adult normal given) AC root (d.<3.7cm) 3.2 LV Septum d (<1.2 cm> 1.3 Valve Excursion 1.4 LV Septum (systole) 1.5 Left Atria (s.<4.0cm> 3.3 LVPW d(<1.2cm) 1.2 RV (d.<2.3cm) 3.1 LVPW (sytole) 1.8 LV diastole(<5.6CM) 5.2 MV E-F(>70mm/sec) LV systole 3.6 LVOT Diameter 2.2 MV exc.(>10mm) 1.2 Est.ejection fraction (50-75%) Pericardial Effusion N DOPPLER: LVIT A 107 E 75.0 LA RVSP 24 LVOT 94 AOP1/2T Asc. Ao 155 RVOT 87 RA PA 96 AV Gradient Peak 9.63 AV Mean 5.8 AV Area 2.3 MV Gradient Peak 5.44 MV Mean 2.15 MV Area COMMENTS: Hooker Machine Tender: Ben REYEZ Detention Attendant:Baryr Faustin TAPE# PACS DATE OF SERVICE: 09/19/2016 Echocardiogram FINDINGS: 1. Left ventricular chamber size is within normal limits. Left ventricular systolic function is normal. Overall ejection fraction estimated at 55%. 2. Left atrium, right atrium, and right ventricular chamber size is within normal limits. Left atrium measures 3.3 cm. 3. Valvular structures have normal structure and motion. ECHOCARDIOGRAM REPORT [id number] NELA HERNANDEZ 4. Doppler interrogation reveals only mild tricuspid regurgitation, no other valvular insufficiency or stenosis. Pulmonary systolic pressure is normal at 24 mmHg. 5. No evidence of pericardial effusion or left ventricular thrombus. TRANSINT:[id number] Voice Confirmation ID: [id number] DOCUMENT ID: [id number] IZABELLA FAUSTIN MD at 1111 CC: [id number] DICTATION DATE: 09/19/16 1157 BLACK LEATHER BUFFER: 09/19/16 1242 ADM IN [place] [id number] [place] [id number]
[2016-09-26 12:51] VITALS: BP 142/61
--- NOTE | 2016-09-26 15:27 | NUR ---
REMAINS WITHOUT DISTRESS.DIET COKE PER PT REQUEST.MONITOR
[2016-09-26 19:00] VITALS: BP 170/63
--- NOTE | 2016-09-26 19:21 | NUR ---
REMAINS WITHOUT CHANGE.CONT PLAN OF CARE
--- NOTE | 2016-09-26 20:09 | NUR ---
PT IS RESTING IN BED WITH EYES OPEN. ALERT AND ORIENTED X 3. DENIES ACUTE DISCOMFORT AT THIS TIME. REFUSING TO WEAR SLING TO RIGHT SHOULDER WHILE IN BED. PT STATES, I WILL WEAR IT WHEN I GET UP, BUT IT IS JUST TO HOT TO WEAR IN BED." LFA SALINE LOCK NOTED. BRODERICK CATH IS PATENT AND DRAINING TO A GRAVITY BAG. 02 IS ON @ 2LPM PER NC. SR'S AR EUP X 3 IN BED. CALL LIGHT AND BEDSIDE TABLE ARE WITHIN EASY REACH.
--- NOTE | 2016-09-26 22:19 | NUR ---
PT ASSISTED TO REPOSITION IN BED AT HER REQUEST. NO FURTHER NEEDS VOICED.
--- NOTE | 2016-09-26 23:42 | NUR ---
PT IS RESTING IN BED WITH EYES CLOSED. NO DISTRESS NOTED.
[2016-09-27] VITALS: BP 159/60
--- NOTE | 2016-09-27 01:46 | NUR ---
PT IS RESTING IN BED WITH EYES OPEN. NO NEEDS VOICED.
--- NOTE | 2016-09-27 03:39 | NUR ---
PT RESTING QUIETLY IN BED WITH EYES CLOSED. NO DISTRESS NOTED.
[2016-09-27 04:00] VITALS: BP 151/65
--- NOTE | 2016-09-27 06:55 | NUR ---
PT RESTING IN BED WITH EYES OPEN. NO NEEDS VOICED.
[2016-09-27 07:04] LABS: BASOPHILS 0.1 % (0.0-2.0); EOSINOPHILS 0 % (0-7); HEMATOCRIT 42.8 % (36.0-48.0); HEMOGLOBIN 13.6 g/dL (12-16); IMMATURE GRANULOCYTES 3.8 % (0-5); LYMPHOCYTES 11.6 % (15-50); MCH 28.6 pg (26.0-34.0); MCHC 31.8 g/dL (31.0-37.0); MCV 90.1 fL (80.0-100.0); MEAN PLATELET VOLUME 10.2 fL (7.4-10.4); MONOCYTES 10.3 % (2-11); NEUTROPHILS 74.2 % (40-80); PLATELET COUNT 266 10x3/uL (130-400); RBC 4.75 10x6/uL (4.00-5.40); RDW 14.4 % (11.5-14.5)
[2016-09-27 07:29] LABS: ALBUMIN 2.8 g/dL (3.4-5.0); ANION GAP 13.6 mmol/L (8-16); BILIRUBIN - TOTAL 0.53 mg/dL (0.2-1.3); CALCIUM 8.8 mg/dL (8.5-10.1); CARBON DIOXIDE 28.5 mmol/L (21.0-32.0); CREATININE - SERUM 0.9 mg/dL (0.6-1.3); POTASSIUM - SERUM 5.1 mmol/L (3.5-5.1); PROTEIN - SERUM 6.4 g/dL (6.4-8.2)
[2016-09-27 09:06] VITALS: BP 138/52
[2016-09-27 12:26] VITALS: BP 146/56
[2016-09-27 16:13] VITALS: BP 122/59
--- NOTE | 2016-09-27 17:51 | NUR ---
AWKE ALERT COLOR ADQ SKIN WARM AND DRY REZSP EVEN AND UNLABORED AT PRESENT.
[2016-09-27 19:00] VITALS: BP 113/50
--- NOTE | 2016-09-28 01:13 | NUR ---
PT SLEEPING. NO SIGNS OF DISTRESS. RESPIRATIONS EVEN AND UNLABORED. BED LOW, CALL LIGHT IN REACH.
[2016-09-28 04:00] VITALS: BP 119/54
[2016-09-28 07:33] LABS: BASOPHILS 0.2 % (0.0-2.0); EOSINOPHILS 0.9 % (0-7); HEMATOCRIT 45.3 % (36.0-48.0); HEMOGLOBIN 14.2 g/dL (12-16); IMMATURE GRANULOCYTES 3.1 % (0-5); LYMPHOCYTES 18.3 % (15-50); MCH 28.9 pg (26.0-34.0); MCHC 31.3 g/dL (31.0-37.0); MCV 92.3 fL (80.0-100.0); MEAN PLATELET VOLUME 10.6 fL (7.4-10.4); MONOCYTES 9.4 % (2-11); NEUTROPHILS 68.1 % (40-80); PLATELET COUNT 233 10x3/uL (130-400); RBC 4.91 10x6/uL (4.00-5.40); RDW 15.2 % (11.5-14.5); WBC 13.3 10x3/uL (4.8-10.8)
[2016-09-28 07:58] LABS: ALBUMIN 2.8 g/dL (3.4-5.0); ANION GAP 7.5 mmol/L (8-16); BILIRUBIN - TOTAL 0.7 mg/dL (0.2-1.3); CALCIUM 8.4 mg/dL (8.5-10.1); CARBON DIOXIDE 32.5 mmol/L (21.0-32.0); PROTEIN - SERUM 6.4 g/dL (6.4-8.2)
[2016-09-28 08:24] VITALS: BP 105/52
[2016-09-28 11:52] VITALS: BP 123/53
[2016-09-28 16:27] VITALS: BP 137/48
[2016-09-28 19:00] VITALS: BP 129/59
--- NOTE | 2016-09-28 20:31 | NUR ---
RECIEVED PT WATCHING TV, ASSESMENT COMPLETED, BRODERICK DRAINING DARK URING WITH SEDIMENT, DDG TO R SHOULDER CDI, SR'S UP X2, CL IN REACH, WILL MONITOR
--- NOTE | 2016-09-28 22:13 | NUR ---
MEDS GIVEN PER MAR, ALANA WELL, NO NEEDS NOTED, CL IN REACH
--- NOTE | 2016-09-29 02:10 | NUR ---
PRN PAIN MED GIVEN PER MAR FOR C/O SHOULDER PAIN, ALANA WELL, CL IN REACH
[2016-09-29 04:00] VITALS: BP 142/59
[2016-09-29 04:36] LABS: BASOPHILS 0.1 % (0.0-2.0); EOSINOPHILS 1.3 % (0-7); HEMATOCRIT 45.4 % (36.0-48.0); HEMOGLOBIN 14.5 g/dL (12-16); IMMATURE GRANULOCYTES 2.4 % (0-5); LYMPHOCYTES 12.9 % (15-50); MCH 28.9 pg (26.0-34.0); MCHC 31.9 g/dL (31.0-37.0); MCV 90.4 fL (80.0-100.0); MEAN PLATELET VOLUME 10.9 fL (7.4-10.4); MONOCYTES 9.2 % (2-11); NEUTROPHILS 74.1 % (40-80); PLATELET COUNT 230 10x3/uL (130-400); RBC 5.02 10x6/uL (4.00-5.40); RDW 15.3 % (11.5-14.5); WBC 16.2 10x3/uL (4.8-10.8)
[2016-09-29 04:50] LABS: APTT 39.1 SECONDS (22.8-39.4); INR 1.05 (0.85-1.17); PROTIME 13.5 SECONDS (11.6-15.0)
[2016-09-29 04:54] LABS: ANION GAP 14.4 mmol/L (8-16); CALCIUM 8.9 mg/dL (8.5-10.1); CARBON DIOXIDE 26.2 mmol/L (21.0-32.0); CREATININE - SERUM 0.8 mg/dL (0.6-1.3); POTASSIUM - SERUM 4.6 mmol/L (3.5-5.1)
--- NOTE | 2016-09-29 05:57 | NUR ---
SOLUMEDROL GIVEN PER NOV, PROTONIX HELD DUE TO NPO STATUS, ALANA WELL, DENIES NEEDS, CL IN REACH
--- NOTE | 2016-09-29 08:00 | NUR ---
TO IR VIA BED FOR PROCEDURE ORDERED
--- NOTE | 2016-09-29 09:00 | NUR ---
ASSESSMENT PER FLOW SHEET.WITHOUT DISTRESS.
[2016-09-29 10:20] VITALS: BP 135/53
--- NOTE | 2016-09-29 11:44 | NUR ---
Rehab Prescreening Consult recieved and the chart was reviewed. She is a good IRF candidate and has stated she will participate in the program. If she ambulates with PT today she will be accepted today. The [facility] has been made aware. Joy Jimenes RN Clinical Liaison, Rehab
--- NOTE | 2016-09-29 13:33 | NUR ---
CM REASSESSMENT NOTE: PATIENT WILL DISCHARGE TODAY TO GO TO IP REHAB.
[2016-09-29] MEDS ORDERED: XOPENEX 0.0.63 MG/3 UPD (13:34)
[2016-09-29] MEDS ORDERED: BROVANA15 MCG/2 M INH (13:34)
[2016-09-29] MEDS ORDERED: OXYCODONE HCL5 MG PO (13:35)
[2016-09-29] MEDS ORDERED: PULMICORT0.5 MG/21 UPD (13:36)
[2016-09-29] MEDS ORDERED: MUCINEX DM ER1 EAC1 PO (13:36)
[2016-09-29] MEDS ORDERED: TESSALON PERLE100 MG PO (13:36)
[2016-09-29] MEDS ORDERED: ELIQUIS2.5 MG PO (13:37)
[2016-09-29 13:50] VITALS: BP 113/46
[2016-09-29 16:58] VITALS: BP 142/76
--- NOTE | 2016-09-29 18:24 | NUR ---
REPORT TO KATIE AT REHAB. PT WILL GO TO ROOM 17 A
--- NOTE | 2016-09-29 19:01 | NUR ---
TO REHAB VIA BED
[2016-09-29] MEDS ORDERED: BENICAR20 MG PO (19:42)
[2016-10-21 07:25] LABS: FUNGUS MYCOLOGY CULTURE Final report (())
[2016-11-13 14:27] LABS: ACID FAST CULTURE Negative (()); ACID FAST SMEAR Negative (())
== END 2016-09-29 19:00 | DRG 483 ==
LOC: D.ER 20:28 → D.MS 23:07 → OBSVTIME 09-18 00:30 → D.ICU 09-18 13:38 → D.MS 09-18 13:38 → D.ICU 09-18 17:26 → D.MS 09-22 14:56
PROVIDERS: Emergency Medicine; Family Medicine; Family Medicine Adult Medicine; Internal Medicine Pulmonary Disease; Specialist; ADMIT Orthopaedic Surgery
PROC: 0RRJ0J6 Replacement of Right Shoulder Joint with Synthetic Substitute, Humeral Surface, Open Approach (ICD-10-PCS; principal; 2016-09-17)
PROC: 0T9B70Z Drainage of Bladder with Drainage Device, Via Natural or Artificial Opening (ICD-10-PCS; 2016-09-18)
PROC: 5A09357 Assistance with Respiratory Ventilation, Less than 24 Consecutive Hours, Continuous Positive Airway Pressure (ICD-10-PCS; 2016-09-18)
PROC: 0BBF8ZX Excision of Right Lower Lung Lobe, Via Natural or Artificial Opening Endoscopic, Diagnostic (ICD-10-PCS; 2016-09-21)
DX: S42.241A 4-part fracture of surgical neck of right humerus, initial encounter for closed fracture (principal); J96.02 Acute respiratory failure with hypercapnia; J96.01 Acute respiratory failure with hypoxia; I50.31 Acute diastolic (congestive) heart failure; J18.9 Pneumonia, unspecified organism; J98.11 Atelectasis; W19.XXXA Unspecified fall, initial encounter; I10 Essential (primary) hypertension; E11.40 Type 2 diabetes mellitus with diabetic neuropathy, unspecified; Z86.73 Personal history of transient ischemic attack (TIA), and cerebral infarction without residual deficits; I11.0 Hypertensive heart disease with heart failure; J44.9 Chronic obstructive pulmonary disease, unspecified; G47.33 Obstructive sleep apnea (adult) (pediatric); T17.990A Other foreign object in respiratory tract, part unspecified in causing asphyxiation, initial encounter; E87.5 Hyperkalemia; I73.9 Peripheral vascular disease, unspecified; I07.1 Rheumatic tricuspid insufficiency

== ENCOUNTER 2016-09-29 16:47 | Inpatient (IN) | payer MEDICARE, BC ==
[~2016-09-29] VITALS: Ht 156.2 cm; Wt 108.9 kg
[~2016-09-29 16:47] MED LIST changes: +BROVANA15 MCG/2 M INH; +ELIQUIS2.5 MG PO; +GLIMEPIRIDE1 MG PO; +MUCINEX DM ER1 EAC1 PO; +OXYCODONE HCL5 MG PO; +PULMICORT0.5 MG/21 UPD; +TESSALON PERLE100 MG PO; +XOPENEX 0.0.63 MG/3 UPD
--- NOTE | 2016-09-29 19:25 | NUR ---
Recieved 1899: patient via strecher from Med Surg.Alert and oriented X 4 Full code, Right shouldeer Fx, COPD O2 at 2 L/ via NC, Right arm sling that patient refuses when in bed. Yeast to Abdomen folds aand buttocks, Foly cath draining siddharth urine, Alergies Lisinopril, left wrist SL.will continue to monitor.
[2016-09-29] MEDS ORDERED: BENICAR20 MG PO (19:42)
[2016-09-29 20:00] VITALS: BP 113/58
--- NOTE | 2016-09-30 01:43 | NUR ---
PRN MIRALAX GIVEN AT 2139 FOR CONSTIPATION
[2016-09-30 02:09] VITALS: BP 113/58
--- NOTE | 2016-09-30 03:08 | NUR ---
PATIENT RESTING QUIETLY EYES CLOSED IN BED, NO ACUTE DISTRESS NOTED.
[2016-09-30 06:48] LABS: BASOPHILS 0.1 % (0.0-2.0); EOSINOPHILS 0.7 % (0-7); HEMATOCRIT 43.7 % (36.0-48.0); IMMATURE GRANULOCYTES 1.5 % (0-5); LYMPHOCYTES 13.2 % (15-50); MCH 28.9 pg (26.0-34.0); MCV 90.3 fL (80.0-100.0); MEAN PLATELET VOLUME 10.5 fL (7.4-10.4); MONOCYTES 9.1 % (2-11); NEUTROPHILS 75.4 % (40-80); PLATELET COUNT 214 10x3/uL (130-400); RBC 4.84 10x6/uL (4.00-5.40); RDW 15.2 % (11.5-14.5); WBC 15.1 10x3/uL (4.8-10.8)
[2016-09-30 07:05] LABS: CALCIUM 8.6 mg/dL (8.5-10.1); CARBON DIOXIDE 28.8 mmol/L (21.0-32.0); CREATININE - SERUM 0.9 mg/dL (0.6-1.3); POTASSIUM - SERUM 4.8 mmol/L (3.5-5.1)
--- NOTE | 2016-09-30 08:05 | NUR ---
SITTING UP IN BED EATING BREAKFAST. CALL LIGHT IN REACH
[2016-09-30 08:37] VITALS: BP 122/47
--- NOTE | 2016-09-30 12:17 | NUR ---
EATING LUNCH IN ROOM.
[2016-09-30 12:58] VITALS: Ht 156.2 cm; Wt 108.9 kg
--- NOTE | 2016-09-30 16:02 | NUR ---
IN BED WITH VISITORS AT BEDSIDE. CALL LIGHT IN REACH.
--- NOTE | 2016-09-30 18:23 | NUR ---
PT IN BED WATCHING TV. CALL LIGHT IN REACH.
--- NOTE | 2016-09-30 19:05 | NUR ---
INTRODUCED SELF TO PT, PT SITTING IN BED WATHCING TV, PT STATES NO NEW NEEDS NOTED AT THIS TIME, WILL CONTINUE TO MONITOR, CALL LIGHT WITHIN REACH.
[2016-09-30 21:15] VITALS: BP 128/49
--- NOTE | 2016-09-30 21:39 | NUR ---
NIGHT MEDICATION GIVEN, PT TOLERATED WELL, HELP PT FILL OUT MENU, WILL CONTINUE TO MONITOR, CALL LIGHT WITHIN REACH.
--- NOTE | 2016-09-30 21:54 | NUR ---
PT STATES PAIN AT A 5 IN RIGHT ARM, PAIN MEDICATION GIVEN, WILL CONTINUE TO MONITOR, CALL LIGHT WITHIN REACH.
--- NOTE | 2016-09-30 23:26 | NUR ---
PT RESTING QUIETLY, RESPIRATIONS EVEN, BED IN LOW POSITION, SIDE RAILS UP X'S 2, CALL LIGHT WITHIN REACH.
--- NOTE | 2016-10-01 00:46 | NUR ---
PT RESTING QUIETLY, RESPIRATIONS EVEN, WILL CONTINUE TO MONITOR, CALL LIGHT WITHIN REACH.
--- NOTE | 2016-10-01 02:15 | NUR ---
RESTING IN BED, EYES CLOSED. NO EVIDENT DISTRESS.
--- NOTE | 2016-10-01 04:23 | NUR ---
PT RESTING QUIETLY, RESPIRATIONS EVEN, WILL CONTINUE TO MONITOR, CALL LIGHT WITHIN REACH.
--- NOTE | 2016-10-01 06:25 | NUR ---
MORNING MEDICATION GIVEN, 600 CC OF CLOUDY, CONCENTRATED, FOUL ODOR, WILL CONTINUE TO MONITOR, CALL LIGHT WITHIN REACH.
--- NOTE | 2016-10-01 07:00 | NUR ---
Pt. was received at the beginning of this shift in bed awake and oriented x 3. 02 per nc going at 3L/min. Dominguez catheter is patent and draining urine to gravity. Pt. denies any pain or discomfort. Will be monitoring her and assisting prn with adl's. Vital signs: Temp. 98.1, pulse 82, resp. 14, b/p 113/56, 02 sat 95%. Call light is in reach.
[2016-10-01 08:29] VITALS: BP 113/56
--- NOTE | 2016-10-01 16:51 | NUR ---
CARE TEAM MEETING: PATIENT TENATIVE DATE IS 10/15/16. PATIENT PCP IS DR. NEAL IN [facility]. SHE HAS A WALKER AT HOME. WILL CONTINUE TO FOLLOW WITH PATIENT UNTIL DISCHARGED.
--- NOTE | 2016-10-01 18:45 | NUR ---
Pt had an uneventful day. Dominguez catheter had 700cc's tea colored urine out. Pt had 1 large bm today. No voiced complaints of pain or discomfort. Call light in reach. Pt. resting comfortably in bed with hob at 30%.
--- NOTE | 2016-10-01 19:40 | NUR ---
PT SITTING UP IN BED WATCHING TV. O2 RUNNING AT 3LPM. PT RT SHOULDER INCISION IS BRUISED WITH FERNANDO OPEN TO AIR. PT DENIES NEEDS AT THIS TIME. BED LOW. CL INR EACH.
--- NOTE | 2016-10-01 20:45 | NUR ---
PT REQ AND REC'D PRN PAIN MED WITH HS MEDS. WCTM. BED LOW. CL INR EACH.
--- NOTE | 2016-10-01 23:01 | NUR ---
PT RESTING, EYES CLOSED. BED LOW. CL INR EACH.
--- NOTE | 2016-10-02 01:15 | NUR ---
PT RESTING, EYES CLOSED. BED LOW. CL IN REACH. WCTM.
--- NOTE | 2016-10-02 03:27 | NUR ---
PT RESTING, EYES CLOSED. BED LOW. CL IN REACH. WCTM.
--- NOTE | 2016-10-02 05:48 | NUR ---
PT REFUSED SHOWER LAST NIGHT AND THIS AM STATING SHE WAS "TOO TIRED." TOOK AM MEDS WITHOUT DIFFICULTY. WCTM. BED LOW. CL IN REACH.
--- NOTE | 2016-10-02 06:50 | NUR ---
RESTING QUIETLY IN BED. NO S/S PAIN OR DISTRESS. CALL LIGHT IN REACH
[2016-10-02 09:33] VITALS: BP 120/58
--- NOTE | 2016-10-02 11:28 | NUR ---
DENIES NEEDS OR C/O. SITTING UP IN W/C IN ROOM. ALERT AND ORIENTED AND WAITING ON TO COME SEE HER TODAY.
--- NOTE | 2016-10-02 13:28 | NUR ---
SITTING IN W/C IN ROOM. ATE A GOOD LUNCH. APPETITE PAIR TO MODERATE. CALL LIGHT IN REACH
[2016-10-02 19:00] VITALS: BP 116/54
--- NOTE | 2016-10-02 19:35 | NUR ---
PT RESTING IN BED WATCHING TV. PT DENIES NEEDSA T THIS TIME. BED LOW. CL INRE ACH.
--- NOTE | 2016-10-02 21:06 | NUR ---
PT HS MEDS ADMINISTERED. PT DENIES NEEDS AT THIS TIME. EBD LOW. CL INREACH
--- NOTE | 2016-10-03 04:13 | NUR ---
PT RESTING, EYES CLOSED. BED LOW. CL IN REACH. WCTM.
--- NOTE | 2016-10-03 08:00 | NUR ---
LAYING IN BED WITH ALL EXTREMITIES PROPED UP ON PILLOWS. ALERT AND ORIENTED. RT SHOULDER FERNANDO INTACT NO S/S INFECTION
[2016-10-03 08:01] LABS: BASOPHILS 0.1 % (0.0-2.0); EOSINOPHILS 1.6 % (0-7); HEMATOCRIT 40.7 % (36.0-48.0); HEMOGLOBIN 12.8 g/dL (12-16); IMMATURE GRANULOCYTES 0.7 % (0-5); LYMPHOCYTES 15.7 % (15-50); MCHC 31.4 g/dL (31.0-37.0); MCV 92.3 fL (80.0-100.0); MEAN PLATELET VOLUME 10.5 fL (7.4-10.4); NEUTROPHILS 70.9 % (40-80); PLATELET COUNT 185 10x3/uL (130-400); RBC 4.41 10x6/uL (4.00-5.40); RDW 15.5 % (11.5-14.5); WBC 11.9 10x3/uL (4.8-10.8)
[2016-10-03 08:11] LABS: CALCIUM 8.5 mg/dL (8.5-10.1); CARBON DIOXIDE 26.5 mmol/L (21.0-32.0); CREATININE - SERUM 0.9 mg/dL (0.6-1.3); POTASSIUM - SERUM 4.5 mmol/L (3.5-5.1)
[2016-10-03 10:29] VITALS: BP 139/59
--- NOTE | 2016-10-03 10:46 | NUR ---
Nutrition Follow Up: Chart reviewed. Diet: Diabetic PO Intake: 67% (6 meal avg) I<O No new wt +BM 10/01/16 Labs noted - Glucose continues elevated; BUN still elevated but trending down Meds: Amaryl Pt with good po intake at this time. Rec continue current diet. RD following.
--- NOTE | 2016-10-03 11:45 | NUR ---
UP IN W/C. F/C DRAINING CLOUDY URINE.
--- NOTE | 2016-10-03 17:01 | NUR ---
RESTING QUIETLY IN BED WITH EYES CLOSED.
[2016-10-03 19:35] VITALS: BP 119/81
--- NOTE | 2016-10-03 19:45 | NUR ---
PT IS RESTING IN BED WITH EYES CLOSED. AWOKE EASILY TO VERBAL STIMULI. ALERT AND ORIENTED X 3. DENIES ACUTE PAIN OR DISCOMFORT AT THIS TIME. VSS. INCISION TO RIGHT SHOULDER IS HEALING WELL. FERNANDO ARE INTACT. O2 IS ON @ 3LPM PER NC. NO SOB NOTED. BRODERICK CATH IS PATENT AND DRAINING TO A GRAVITY BAG. SR'S ARE UP X 3 IN BED. CALL LIGHT AND BEDSIDE TABLE ARE WITHIN EASY REACH.
--- NOTE | 2016-10-03 22:00 | NUR ---
PT IS RESTING QUIETLY IN BED WITH EYES CLOSED. RESPS ARE EVEN AND UNLABORED. NO ACUTE DISTRESS NOTED.
--- NOTE | 2016-10-04 00:33 | NUR ---
PT RESTING IN BED WITH EYES CLOSED.
--- NOTE | 2016-10-04 00:35 | NUR ---
PT VOICED COMPLAINT OF RIGHT SHOULDER PAIN LEVEL OF 9. MEDICATED PER NOV.
--- NOTE | 2016-10-04 02:48 | NUR ---
RESTING IN BED WITH EYES CLOSED.
--- NOTE | 2016-10-04 06:12 | NUR ---
PT IS RESTING IN BED WITH EYES OPEN. DENIES ANY NEEDS. NO ACUTE DISTRESS NOTED.
--- NOTE | 2016-10-04 06:28 | NUR ---
pt resting quietly, no s/s of acute distress.
--- NOTE | 2016-10-04 07:55 | NUR ---
SITTING UP IN BED. RUE ELEVATED ON PILLOW. REFUSES TO DO EVEN SMALL TASKS FOR HERSELF. STATES SHE "CANT" DO THINGS AND THEN DONT TRY. ASKS FOR THINGS TO BE DONE FOR HER THAT SHE CAN EASILY DO BUT REFUSES. TEACHING WITH HER REGUARDING SKIN BREAKDOWN TO BUTTOCKS AREA AND PREVENTION AND IMPORTANCE OF ROLLING 30 DEGREES EVERY TWO HOURS. SHE STATES SHE CANT MOVE ANY AND DONT CARE ABOUT SKIN BREAKDOWN.
--- NOTE | 2016-10-04 13:38 | NUR ---
IN W/C IN HER ROOM
[2016-10-04 13:45] VITALS: BP 129/68
--- NOTE | 2016-10-04 19:40 | NUR ---
PT. IN BED WITH HOB UP FOR COMFORT AND PILLOWS FOR SUPPORT UNDER BOTH ARMS. PAIN MEDICATION ADMIN. FOR HER LEFT SHOULDER PAIN. ASSESSMENT ALSO COMPLETED. PT'S ONLY REQUEST IS FOR ICE WATER. CALL LIGHT WITHIN REACH FOR ANY OTHER NEEDS.
[2016-10-04 19:49] VITALS: BP 129/55
--- NOTE | 2016-10-05 00:40 | NUR ---
PT. IN BED WITH HOB UP FOR COMFORT WITH EYES CLOSED AND RESP. EVEN. PT. AWAKENED EASILY FOR MIDNIGHT DOSE OF ROBAXIN. PT. TOOK MEDICATION WITHOUT ANY PROBLEMS AND WENT BACK TO SLEEP BEFORE I LEFT ROOM. EYES CLOSED AND RESP. EVEN. BRODERICK TO BSD WITHOUT ANY PROBLEMS. CALL LIGHT REMAINS WITHIN REACH.
--- NOTE | 2016-10-05 04:53 | NUR ---
PT. IN BED WITH HOB UP FOR COMFORT WITH EYES CLOSED AND RESP. EVEN. BRODERICK TO BSD WITHOUT PROBLEM AND CALL LIGHT WITHIN REACH. O2 ON AT 3L/MIN VIA N/C WITHOUT ANY VISIBLE PROBLEMS.
--- NOTE | 2016-10-05 07:34 | NUR ---
RESTING QUIETLY IN BED. CALL LIGHT IN REACH
[2016-10-05 12:49] VITALS: BP 108/58
--- NOTE | 2016-10-05 17:41 | NUR ---
SITTING UP IN BED EATING SUPPER. CALL LIGHT IN REACH
--- NOTE | 2016-10-05 19:15 | NUR ---
PT. IN BED WITH HOB UP FOR COMFORT WITH PILLOWS UNDER BOTH ARMS FOR SUPPORT. ASSESSMENT COMPLETED. PT. REQUESTING PAIN MEDICATION FOR HER RIGHT SHOULDER. PT. STATES SHE'S GOING OUT ON PASS TOMORROW WITH HER DAUGHTER FOR AN APPOINTMENT WITH THE HAND CUTTER APPRENTICE. PT'S TOENAILS ARE SO LONG THAT THEY ARE CURLED UNDER HER FEET SO THIS PREVENTS HER FROM SAFELY AMBULATING. CALL LIGHT WITHIN REACH.
[2016-10-05 19:45] VITALS: BP 121/62
--- NOTE | 2016-10-05 21:45 | NUR ---
PT. IN BED WITH HOB UP FOR COMFORT WITH EYES CLOSED AND RESP. EVEN. BRODERICK TO BSD WITHOUT ANY PROBLEMS. RUE SUPPORTED WITH PILLOW WELL PT'S NECK AND LUE WITH PILLOWS FOR COMFORT. PILLOWS UNDER RIGHT BUTTOCK TO OFF LOAD PRESSURE TO SACRAL AREA. PT. REQUESTED EARLIER A BATH IN THE MORNING AROUND 4A.M. CALL LIGHT WITHIN REACH FOR ANY NEEDS.
--- NOTE | 2016-10-06 02:38 | NUR ---
PT. IN BED WITH HOB UP FOR COMFORT WITH EYES CLOSED AND RESP. EVEN. BRODERICK TO BSD WITHOUT PROBLEMS AND PT. WEARING HER O2 VIA N/C. CALL LIGHT REMAINS WITHIN REACH.
--- NOTE | 2016-10-06 05:50 | NUR ---
AFTER PT. RECEIVED BED BATH SHE WANTED TO GO BACK TO SLEEP. PRESENTLY PLUG SAW OPERATOR IN PT'S ROOM TO DRAW HER BLOOD. PT. HAS NO VOICED NEEDS AT THIS TIME. BRODERICK TO BSD AND O2 ON @ 3/L MIN VIA N/C WITHOUT ANY PROBLEMS. CALL LIGHT WITHIN REACH.
[2016-10-06 06:49] LABS: BASOPHILS 0.1 % (0.0-2.0); EOSINOPHILS 1.9 % (0-7); HEMATOCRIT 39.8 % (36.0-48.0); HEMOGLOBIN 12.3 g/dL (12-16); IMMATURE GRANULOCYTES 0.4 % (0-5); MCH 28.5 pg (26.0-34.0); MCHC 30.9 g/dL (31.0-37.0); MCV 92.1 fL (80.0-100.0); MEAN PLATELET VOLUME 10.2 fL (7.4-10.4); MONOCYTES 9.2 % (2-11); NEUTROPHILS 75.4 % (40-80); PLATELET COUNT 204 10x3/uL (130-400); RBC 4.32 10x6/uL (4.00-5.40); RDW 15.7 % (11.5-14.5); WBC 9.5 10x3/uL (4.8-10.8)
[2016-10-06 07:03] LABS: ANION GAP 13.1 mmol/L (8-16); CARBON DIOXIDE 26.1 mmol/L (21.0-32.0); CREATININE - SERUM 0.8 mg/dL (0.6-1.3); POTASSIUM - SERUM 4.2 mmol/L (3.5-5.1)
[2016-10-06 08:00] VITALS: BP 125/56
--- NOTE | 2016-10-06 08:00 | NUR ---
PATIENT AWAKE/ALERT. PULLED UP IN BED FOR BREAKFAST. MAX ASST. CALL LIGHT WITHIN REACH. VOICES NO NEEDS AT THIS TIME
--- NOTE | 2016-10-06 09:58 | NUR ---
PATIENT IN REHAB ROOM. WORKING WITH PHYSICAL THERAPIST. DENIES ANY PAIN/DISC AT THIS TIME.
--- NOTE | 2016-10-06 13:03 | NUR ---
PT SITTING IN WHEELCHAIR BESIDE HER BED. SHE JUST FINISHED UP ON HER LUNCH. THE ONLY CONCERN SHE HAS IS WITH HER DAUGHTER FOR NOT TAKING HER TO HAVE HER TOENAILS CUT. CALL LIGHT IS IN REACH.
--- NOTE | 2016-10-06 13:25 | NUR ---
PATIENTS DAUGHTER CALLED. DAUGHTER HAD SCHEDULED THIS PATIENT FOR AN APPT WITH A PILATES INSTRUCTOR THIS AFTERNOON. THIS NURSE HAD TALKED WITH DAUGHTER THIS AM STATED THAT PATIENT WOULD HAVE TO PAY OUT OF POCKET FOR THIS EXAM/TREATMENT WITH PILATES INSTRUCTOR DUE TO MEDICARE GUIDELINES. DAUGHTER STATED THAT SHE HAS TALKED WITH HER MOTHER, AND HER MOTHER WANTS TO KEEP APPT. AND PAY OUT OF POCKET. PATIENT IS ABLE TO GO OUT ON A THERAPUTIC PASS WITH DAUGHTER.
--- NOTE | 2016-10-06 14:16 | NUR ---
Kofi SANDOVAL RN, MYA CALLED DR PALMER' OFFICE IN REGARDS TO PATIENTS APPT. PATIENT WOULD NEED TO GO OVER TO APPT WITH AN OXYGEN TANK. DR. ALVARADO HAS AGREED TO SEE PATIENT IN REHAB TOMORROW 10-07-16, AT NOON
--- NOTE | 2016-10-06 14:19 | RHP ---
PATIENT: NELA HERNANDEZ MEDICAL RECORD: [id number] ACCOUNT: [id number] LOCATION:[facility]1117 : 38 ADMISSION DATE: 09/29/16 REHABILITATION HISTORY AND PHYSICAL EXAMINATION POST ADMISSION PHYSICIAN EXAMINATION DATE OF ADMISSION: 09/29/2016. ADMITTING DIAGNOSES: Chronic obstructive pulmonary disease induced myopathy, acute hypoxic and hypercapnic respiratory failure secondary to chronic obstructive pulmonary disease and acute diastolic congestive heart failure. HISTORY OF PRESENT ILLNESS: The patient is a 76-year-old female patient who fell at home and suffered a right comminuted humeral neck fracture. She is postop, developed some shortness of breath and altered mental status. Her chest x-ray showed vascular congestion and COPD. She was sent to the ICU and placed on BiPAP. Postop, the patient had EKG with sinus tachycardia and possible bundle branch block and started on beta-evelyn. ABGs improved on BiPAP and she is currently weaned down to 3 liters via nasal cannula. After 4 days in the ICU, she was transferred out to the medical floor. Currently, she is on decreasing doses of Solu-Medrol. O2 is being titrated to keep her sat above 90% and that has been completed for 7 days. She has also been on Maxipime. Previously she was living alone, was markedly independent with ADLs and mobility using a cane. Currently, she is moderate to max assist for ADLs and mobility even for short distances. COMORBIDITIES: Include obstructive sleep apnea, bilateral infiltrates, pleural effusions leukocytosis, atelectasis, hyperkalemia, peripheral arterial disease, peripheral vascular disease, chronic UTIs, fatigue, weakness, shortness of breath and productive cough. PAST MEDICAL HISTORY: Significant for diabetes, peripheral vascular disease, and peripheral arterial disease. PAST SURGICAL HISTORY: Includes gallbladder, knee surgery, right shoulder, and stent in her left leg. ALLERGIES: LISINOPRIL. CURRENT MEDICATIONS: Include Robaxin 750 q.6 hours p.r.n., Amaryl 4 mg daily, budesonide 0.5 mg b.i.d., Brovana 15 mcg b.i.d., OxyIR 5 mg q.4 hours p.r.n., Xopenex 0.63 mg q.4 hours p.r.n., Mucinex b.i.d., Lomotil 1 tab q.4 hours p.r.n., benzonatate 100 mg t.i.d., Eliquis 2.5 mg b.i.d., and polyethylene glycol 17 grams in 8 ounces of water daily. HABITS: No current alcohol or tobacco use. FAMILY HISTORY: Noncontributory. SOCIAL HISTORY: The patient wants to return back home and live in the [facility] area. REVIEW OF SYSTEMS: GENERAL: She does complain of weakness. HEENT: She does complain cold, cough, or congestion. HISTORY AND PHYSICAL [id number] NELA HERNANDEZ CARDIOVASCULAR: She denies any chest pain. LUNGS: She does complain of shortness of breath. PHYSICAL EXAMINATION: VITAL SIGNS: Stable. She is afebrile. GENERAL: Morbidly obese female in no acute distress, alert upon exam. HEENT: Normocephalic and atraumatic. Mucosa moist. NECK: Supple. No lymphadenopathy. LUNGS: Coarse breath sounds bilaterally with decreased breath sounds in the bases. CARDIOVASCULAR: Regular rate and rhythm. ABDOMEN: Benign. EXTREMITIES: No clubbing, cyanosis or edema. She does have areas of tenderness to her humeral region. NEUROLOGIC: Intact. LABORATORY DATA: Her admit white count is 15.1, H&H of 14 and 43 and platelet count is 214. Her sodium is 136, potassium 4.8. BUN and creatinine of 30 and 0.9 and blood sugar was noted to be 187. ASSESSMENT: This is a 76-year-old female patient admitted to the rehab with a working diagnosis of chronic obstructive pulmonary disease induced myopathy. The patient has potential to make improvement. We instituted the follow multidisciplinary therapies including to, but not limited to physical, occupational, respiratory, speech, nutritional services, prosthetics and orthotics. Given her complex condition and risk for more complications, rehabilitation services cannot be provided at a low level of care such as a halfway facility. PLAN: 1. Admit to [facility] rehab for intensive inpatient therapy to include the following disciplines: A. Physical therapy to improve gait, all transfer skills and bed mobility to a modified independent level. B. Occupational therapy to improve activities of daily living to a modified independent level. C. Case management to assist with discharge planning and placement options. D. Nutrition to assist with nutritional needs. E. Rehabilitation nursing to assist in monitoring the patient's underlying medical conditions and to assist with any type of bowel or bladder management. 2. The patient's current medication and medical care will be continued. 3. The patient will be placed on standard fall precautions. 4. The patient's estimated length of stay is approximately 7-10 days. 5. We will discuss this patient during care team staff meeting this week. TRANSINT:[id number] Voice Confirmation ID: [id number] DOCUMENT ID: [id number] HISTORY AND PHYSICAL [id number] NELA HERNANDEZ SCOTT MD at 1419 CC: [id number] DICTATION DATE: 09/30/16900 PRODUCTION BOW MAKER: 09/30/16 0944 ADM IN [place] [id number] [place] [id number]
--- NOTE | 2016-10-06 14:56 | NUR ---
BLADDER TRAINING STARTED ON THIS PATIENT.
--- NOTE | 2016-10-06 15:27 | NUR ---
SPOKE WITH DAUGHTER MANJU AND SHE WOULD LIKE FOR HER MOTHER TO DISCHARGE TO [facility] AND REHAB. SHE BELIEVES IF SHE COULD GET HER TO WHERE SHE KNEW PEOPLE SHE WOULD PARTICIPATE MORE. WILL DISCUSS THIS WITH MRS. BLOUNTALL.WILL CONTIUNE TO FOLLOW WITH PATIENT
--- NOTE | 2016-10-06 16:54 | NUR ---
PATIENT DOES NOT STATE URGE TO URINATE. BRODERICK CATH UNCLAMPED AND RECLAMPED.
--- NOTE | 2016-10-06 18:26 | NUR ---
PRN PAIN MEDICATION GIVEN FOR LOWER BACK PAIN
--- NOTE | 2016-10-06 19:25 | NUR ---
PT. IN BED WITH HOB UP FOR COMFORT. PT. REPORTED TO ME THE EVENTS OF THE DAY CONCERNING THE EXTRUSION MACHINE OPERATOR AND THAT HE IS COMING TOMORROW TO SEE HER HERE IN HER ROOM. ASSESSMENT COMPLETED. PT. HAS NO VOICED NEEDS AT THIS TIME AND HER CALL LIGHT IS WITHIN HER REACH.
[2016-10-06 19:45] VITALS: BP 117/65
--- NOTE | 2016-10-06 23:45 | NUR ---
PT. IN BED WITH HOB UP FOR COMFORT, EYES CLOSED, RESP. EVEN, O2 ON VIA N/C AND BRODERICK TO BSD WITH BLADDER TRAINING ONGOING. CALL LIGHT IS WITHIN HER REACH.
--- NOTE | 2016-10-07 02:41 | NUR ---
PT. IN BED WITH HOB UP FOR COMFORT WITH EYES CLOSED AND RESP. EVEN. O2 ON VIA N/C AT 3L/MIN AND BRODERICK TO BSD. CALL LIGHT WITHIN REACH.
--- NOTE | 2016-10-07 05:00 | NUR ---
PT. IN BED WITH HOB UP FOR COMFORT. BRODERICK HAS BEEN CLAMPED MOST OF THIS SHIFT AND PT. HAS NEVER REPORTED FEELING ANY PRESSURE IN HER BLADDER. BRODERICK TUBING UNCLAMPED AND A TOTAL OF 485CC'S OF URINE OUTPUT FOR THE SHIFT. PT. HAS NO NEEDS AT THIS TIME AND HER CALL LIGHT IS WITHIN REACH.
[2016-10-07 07:30] VITALS: BP 107/62
--- NOTE | 2016-10-07 08:05 | NUR ---
RESTING QUIETLY IN BED ,DENIES ANY NEEDS.VS TAKEN AND STABLE.DENIES NEEDS AT PRESENT TIME.CL IN EASY REACH,BED IN LOW POSITION.BREAKFAST SERVED.
--- NOTE | 2016-10-07 18:28 | NUR ---
Pt. has had an uneventful day. Denies any pain or discomfort. Staff monitoring and assisting prn with adl's. No signs of distress. Dominguez catheter patent and draining yellow urine to gravity. Call light within reach.
--- NOTE | 2016-10-07 19:17 | NUR ---
PT IS RESTING IN BED WITH EYES OPEN. ALERT AND ORIENTED X 3. DENIES PAIN OR DISCOMFORT AT THIS TIME. FERNANDO ARE INTACT TO RIGHT SHOULDER. EXTENSIVE BRUISING NOTED. BRODERICK CATH PATENT AND DRAINING TO A GRAVITY BAG. BLADDER TRAINING IN PROGRESS. O2 IS ON @ 2LPM PER NC. SR'S ARE UPX 2 IN BED. CALL LIGHT AND BEDSIDE TABLE ARE WITHIN EASY REACH.
[2016-10-07 19:20] VITALS: BP 139/63
--- NOTE | 2016-10-07 21:11 | NUR ---
PT REFUSED A SHOWER WITH THE COMMISSIONING AGENT.
--- NOTE | 2016-10-07 22:28 | NUR ---
RESTING IN BED WITH EYES CLOSED.
--- NOTE | 2016-10-08 00:01 | NUR ---
RESTING IN BED WITH EYES CLOSED.
--- NOTE | 2016-10-08 01:28 | NUR ---
RESTING QUIETLY IN BED WITH EYES CLOSED. RESPS ARE EVEN AND UNLABORED. NO ACUTE DISTRESS NOTED.
--- NOTE | 2016-10-08 02:35 | NUR ---
IN BED, EYES CLOSED. NO APPARENT DISCOMFORT.
--- NOTE | 2016-10-08 06:32 | NUR ---
BRODERICK CATH DC'D WITH BULB INTACT. 400 CC DARK GABRIELLE URINE NOTED. PT ASSISTED UP TO BATHROOM WITH MAX ASSIST FOR TRANSFERS. SBA FOR TOILETING. SMALL BM NOTED.
[2016-10-08 08:00] VITALS: BP 137/63
--- NOTE | 2016-10-08 08:00 | NUR ---
PATIENT SITTING UP IN WHEELCHAIR IN ROOM FOR BREAKFAST. ALERT/ORIENT X4. CALL LIGHT WITHIN REACH. VOICES NO NEEDS AT THIS TIME
--- NOTE | 2016-10-08 10:16 | NUR ---
PATIENT WORKING WITH OCCUPATIONAL THERAPIST IN HER ROOM FOR A SHOWER. MODERATE ASST WITH SHOWER.
--- NOTE | 2016-10-08 12:46 | NUR ---
PATIENT HAS VISITOR IN ROOM. SITTING UP IN WHEELCHAIR AT BEDSIDE. FLUIDS ENCOURAGED. URINE DARK BROWN IN COLOR
--- NOTE | 2016-10-08 14:50 | NUR ---
PATIENT HELPED BACK INTO BED AFTER THERAPY. MOD ASST ON ONE FROM WHEELCHAIR TO BED. PATIENT NEEDED HELP WITH MOVING SELF IN BED. REQUESTED PILLOW BEHINE HEAD, BOTH ARMS AND UNDER LEG.
--- NOTE | 2016-10-08 15:00 | NUR ---
PT IS CURRENTLY IN THERAPY GYM. STABLE CONDITION OBSERVED. ASSISTANCE PROVIDED WITH ADL'S. ALERT AND ORIENTED X 3. NO VOICED COMPLAINTS AT THIS TIME.
--- NOTE | 2016-10-08 16:28 | NUR ---
CARE TEAM MEETING: DAUGHTER ATTENDED MEETING. I SPOKE WITH PATIENT REGARDING GOING TO [facility]. SHE IS INTERESTED IN DISCHARGING THERE. REFERRAL WILL BE MADE.PATIENT HAS WALKER AT HOME, SHE IS NOW ON O2 AND WILL PROBLY BE DISCHARGED WITH O2 , WILL CONTINUE TO MONITOR. PCP IS DR. NEAL. WILL CONTINUE TO FOLLOW WITH PATIENT UNTIL DISCCHARGED. NEERA[facility]ANNER MD [facility] DISCHARGE DATE IS 10/15/16
--- NOTE | 2016-10-08 17:00 | NUR ---
SIX UNITS OF SLIDING SCALE INSULIN GIVEN FOR GLUCOSE LEVEL OF 254.
--- NOTE | 2016-10-08 19:35 | NUR ---
PT. LYING IN BED WITH HER HOB UP FOR COMFORT TALKING ON THE TELEPHONE. ASSESSMENT COMPLETED. CALL LIGHT WITHIN REACH. RE-ADJUSTED PILLOWS FOR PT'S COMFORT FOR HER NECK/HEAD.
[2016-10-08 21:28] VITALS: BP 137/64
--- NOTE | 2016-10-08 22:55 | NUR ---
PT. IN BED WITH HOB UP FOR COMFORT WITH O2 ON AT 3L/MIN VIA N/C. EYES CLOSED AND RESP. EVEN. CALL LIGHT WITHIN REACH.
--- NOTE | 2016-10-09 02:22 | NUR ---
PT. IN BED WITH HOB UP FOR COMFORT AND IS WATCHING TV. ASKED PT. IF THE QUALITY MANAGEMENT COORDINATOR CAME TO SEE HER THE OTHER DAY. PT. STATED YES AND TOENAILS HAVE BEEN TRIMMED FOR PT. TO BE ABLE TO WALK SAFELY. PT. DENIES ANY NEEDS AT THIS TIME AND HAS HER CALL LIGHT WITHIN REACH.
--- NOTE | 2016-10-09 04:17 | NUR ---
PT. IN BED WITH HOB UP FOR COMFORT WITH EYES CLOSED AND RESP. EVEN. O2 ON @3L/MIN VIA N/C. CALL LIGHT IS WITHIN REACH.
--- NOTE | 2016-10-09 06:00 | NUR ---
PT'S BRIEF SOAKED WITH URINE. COMPLETE BED LINEN AND CLOTHING CHANGED. PT. POSITIONED TO COMFORT WITH HOB UP AND PILLOWS TO RUE FOR SUPPORT. O2 AT 3L/MIN VIA N/C AND CALL LIGHT WITHIN REACH.
--- NOTE | 2016-10-09 07:31 | NUR ---
RESTING QUIETLY IN BED. CALL LIGHT IN REACH
--- NOTE | 2016-10-09 10:42 | NUR ---
Nutrition Follow Up: Chart reviewed. Diet: Diabetic PO Intake: 49% (9 meal avg) I>O +BM 10/08/16 No new wt to assess Labs noted - Glucose elevated Meds: Amaryl Pt with fair po intake. Rec continue current diet. RD following.
--- NOTE | 2016-10-09 11:14 | NUR ---
SITTING UP IN W/C IN HER ROOM. IS COMPLAINING THAT SHE NEEDS NEEDS CONSTANT ASST WITH TASKS AND CANT DO MUCH FOR HERSELF. OXYGEN IN PLACE
[2016-10-09 11:18] VITALS: BP 107/49
--- NOTE | 2016-10-09 16:50 | NUR ---
RESTING QUIETLY IN BED. HAS BEEN TALKING ON PHONE. OXYGEN IN PLACE.
[2016-10-09 18:50] VITALS: BP 138/66
--- NOTE | 2016-10-09 20:05 | NUR ---
PT TOOK HS MEDS WITHOUT DIFFICULTY. PT HAD EPISODE OF INCONTINENT BLADDER. PT BED LINENS CHANGED. PT REQ AND REC'D PRN TESSALON FOR COUGH. WCTM. BED LOW. CL INR EACH.
--- NOTE | 2016-10-09 22:10 | NUR ---
PT HAD EPISODE OF INCONTINENCE. PT BED LINENS CHANGED. PT DENEIS NEEDS AT THIS TIME. BED LOW. CL IN REACH.
--- NOTE | 2016-10-10 00:08 | NUR ---
PT REQ AND REC'D PRN PAIN MEDICATION FOR RT SHOULDER PAIN. WCTM. BED LOW. CL IN REACH.
--- NOTE | 2016-10-10 03:45 | NUR ---
PT RESTING, EYES CLOSED. BED LOW. CL IN REACH. WCTM.
--- NOTE | 2016-10-10 05:32 | NUR ---
PT TOOK AM MEDS WITHOUT DIFFICULTY. PT HAD EPISODE OF INCONTINENCE. PT BED LINENS CHANGED AND SHIRT CHANGED. SLIGHT BLOODY DRAINAGE NOTED ON BRIEF. PT STATES NO NEEDS AT THIS TIME. BED LOW. CL IN REACH.
--- NOTE | 2016-10-10 06:13 | NUR ---
PT REQ AND REC'D PRN TESSALON THIS AM FOR COUGH. WCTM. BED LOW. CL IN REACH.
--- NOTE | 2016-10-10 06:53 | NUR ---
SPO2 ON 2LPM IS 88% HR 107BPM. O2 INCREASED TO 3LPM WITH SPO2 UP TO 93%
[2016-10-10 07:53] VITALS: BP 142/59
--- NOTE | 2016-10-10 08:00 | NUR ---
AWAKENED FOR BREAKFAST.UP IN BED.TRAY GIVEN.CL IN REACH.
--- NOTE | 2016-10-10 12:00 | NUR ---
EATING LUNCH AND VISITING WITH FAMILY.DENIES NEEDS AT PRESENT.
--- NOTE | 2016-10-10 14:37 | NUR ---
OXYGEN INCREASED TO 4LPM NC TO MAINTAIN A SPO2 >92%
--- NOTE | 2016-10-10 15:30 | NUR ---
IN THERAPY WORKING WITH PT.
--- NOTE | 2016-10-10 16:15 | NUR ---
RETURNED TO ROOM FROM THERAPY;VERY SOB COMING BACK FROM USING BATHROOM.PULSE OX WAS 87-88;O2 ON 3L;PUT O2 UP TO 4L/NC;PULSE OX UP TO 100%.
--- NOTE | 2016-10-10 16:45 | NUR ---
NOTIFIED BY PAGER AND BY OFFICE,SPOKE WITH HIS NURSE REGARDING PT HAS INCREASED IN RESPS SINCE THERAPY,LABORED AT 36/MIN,DIMINISHED AND FAINT WHEEZING.
--- NOTE | 2016-10-10 17:05 | NUR ---
SPOKE WITH ,CONSULTED RECIEVED AND ORDERS;CALLED AND SPOKE WITH .RESP 36/MIN.PULSE OX 100% ON 4L
--- NOTE | 2016-10-10 17:20 | NUR ---
RAID RESPONSE CALLED;PULSE OX DOWN TO 66% PULSE 140
[2016-10-10 17:53] LABS: BASOPHILS 0.5 % (0.0-2.0); EOSINOPHILS 1.5 % (0-7); HEMATOCRIT 39.7 % (36.0-48.0); HEMOGLOBIN 12.4 g/dL (12-16); IMMATURE GRANULOCYTES 0.4 % (0-5); LYMPHOCYTES 14.7 % (15-50); MCH 28.8 pg (26.0-34.0); MCHC 31.2 g/dL (31.0-37.0); MCV 92.1 fL (80.0-100.0); MEAN PLATELET VOLUME 9.5 fL (7.4-10.4); MONOCYTES 11.9 % (2-11); PLATELET COUNT 293 10x3/uL (130-400); RBC 4.31 10x6/uL (4.00-5.40); RDW 15.8 % (11.5-14.5); WBC 7.4 10x3/uL (4.8-10.8)
[2016-10-10] MEDS ORDERED: LEVAQUIN500 MG PO (18:16)
[2016-10-10] MEDS ORDERED: OXYCODONE HCL5 MG PO (18:17)
[2016-10-10 18:18] LABS: ALKALINE PHOSPHATASE 122 U/L (46-116); ALT (SGPT) 48 U/L (10-68); BILIRUBIN - TOTAL 0.63 mg/dL (0.2-1.3); CALC OSMOLALITY 283 mosm/kg (275-300); CALCIUM 8.1 mg/dL (8.5-10.1); CARBON DIOXIDE 24.8 mmol/L (21.0-32.0); CHLORIDE - SERUM 103 mmol/L (98-107); CREATININE - SERUM 0.8 mg/dL (0.6-1.3); GLUCOSE 194 mg/dL (74-106); POTASSIUM - SERUM 4.4 mmol/L (3.5-5.1); PROTEIN - SERUM 6.3 g/dL (6.4-8.2); SODIUM 139 mmol/L (136-145); UREA NITROGEN 16 mg/dL (7-18); eGFR NON AFRICAN AMERICAN 73 mL/min (90-120)
[2016-10-10] MEDS ORDERED: ROBITUSSIN DM 110 ML PO (18:19)
[2016-10-10] MEDS ORDERED: FLORANEX / LACT1 TAB PO (18:19)
[2016-10-10] MEDS ORDERED: NYSTATIN1 PWD TOPICAL (18:21)
[2016-10-10] MEDS ORDERED: MIRALAX17 GM PO (18:22)
[2016-10-10 18:28] LABS: CKMB 1.3 U/L (0.0-3.6); CREATINE KINASE 79 UL (21-215); MAGNESIUM - SERUM 1.8 mg/dL (1.8-2.4); PHOSPHOROUS 3.4 mg/dL (2.5-4.9); PRO BNP 180 pg/mL (0-450); TROPONIN-I 0.026 ng/mL (0.000-0.060)
--- NOTE | 2016-10-10 18:30 | NUR ---
TAKEN TO 2216/BED ON PORT O2 AT 15L/OXYMISER.
--- NOTE | 2016-10-13 09:03 | NUR ---
LATE ENTRY: PATIENT DISCHARGED FROM REHAB AND ADMITTED TO ACUTE DUE TO CHANGE IN MEDICAL CONDITION
--- NOTE | 2016-11-26 12:30 | DS ---
PATIENT:NELA HERNANDEZ :36 MEDICAL RECORD: [id number] DISCHARGE SUMMARY ADMISSION DATE: 09/29/16 DISCHARGE DATE: 10/10/16 PRIMARY DIAGNOSES: Decreased functional ability and ability to provide activities of daily living, status post right humeral fracture and chronic obstructive pulmonary disease myopathy. SECONDARY DIAGNOSES: 1. [id number]-qk-oqjrhcr hypoxic and hypercapnic respiratory failure. 2. Acute diastolic congestive heart failure. 3. Pneumonia. 4. Diabetes. 5. Pleural effusion. 6. Neuropathy. 7. Weakness. 8. Fatigue. 9. Chronic urinary tract infections. 10. Peripheral vascular disease. 11. Hyperkalemia. 12. Obstructive sleep apnea. HOSPITAL COURSE: Full H&P is located elsewhere on the chart on this 76-year-old female, who was admitted to inpatient rehab for physical therapy and occupational therapy to improve gait, transfer skills, bed mobility, and activities of daily living to a modified independent level. She was evaluated by PT and OT and their plans of care were followed. She required nursing home care for observation and assessment and medication administration. Fingerstick blood sugars were monitored throughout her hospital stay with appropriate adjustment in medications as needed. She continued on nebulized medications for respiratory support. She was on Levaquin for antibiotic coverage. She was cooperative with therapies, progressing towards goals. She was seen by podiatry to trim her toenails. She had a Dominguez catheter, they did bladder training with subsequent removal of the catheter. She did have some mild urinary incontinence. She required increased liter flow of oxygen and experienced worsening shortness of breath after therapy with increased work of breathing. Her pulse ox was down to 66 with a heart rate of 140, rapid response was called. Pulmonary was consulted and she was transferred to the acute hospital for higher level of care. DISCHARGE MEDICATIONS: As per discharge medication reconciliation. DISCHARGE DISPOSITION: The patient is transferred to the acute floor for a higher level of care. She will follow with consultants and primary care in the acute facility. TRANSINT:[id number] Voice Confirmation ID: [id number] DOCUMENT ID: [id number] Dictated By: KIM RIBERA I have interviewed/examined the above patient and agree with these documented findings. DISCHARGE SUMMARY REPORT [id number] NELA HERNANDEZ SCOTT MD at 1230 at 1231 CC: [id number] DICTATION DATE: 11/22/16 1333 HEALTH THERAPIST: 11/23/16 0154 DIS IN 10/10/16 [place] [id number] [place] [address]
== END 2016-10-10 18:50 | disposition short-term general hospital (02) | DRG 91 ==
LOC: D.REHAB 16:47
PROVIDERS: ADMIT Emergency Medicine
DX: G72.89 Other specified myopathies (principal); J96.01 Acute respiratory failure with hypoxia; I50.31 Acute diastolic (congestive) heart failure; J90 Pleural effusion, not elsewhere classified; J98.11 Atelectasis; N39.0 Urinary tract infection, site not specified; J44.9 Chronic obstructive pulmonary disease, unspecified; G47.33 Obstructive sleep apnea (adult) (pediatric); E87.5 Hyperkalemia; D72.829 Elevated white blood cell count, unspecified; S42.213D Unspecified displaced fracture of surgical neck of unspecified humerus, subsequent encounter for fracture with routine healing; E11.40 Type 2 diabetes mellitus with diabetic neuropathy, unspecified; E11.59 Type 2 diabetes mellitus with other circulatory complications; I10 Essential (primary) hypertension; I73.9 Peripheral vascular disease, unspecified; R53.83 Other fatigue; R53.1 Weakness; R51 Headache

== ENCOUNTER 2016-10-10 19:01 | Inpatient (IN) | payer MEDICARE, BC ==
[~2016-10-10] VITALS: Ht 152.4 cm; Wt 85.8 kg
--- NOTE | 2016-10-10 18:55 | NUR ---
PATIENT TO ROOM AT THIS TIME. O2 ON AT 15 L OXIMIZER. NO COMPLAINTS OR SIGNS OF DISTRESS AT THIS TIME. CALL LIGHT WITHIN REACH.
[~2016-10-10 19:01] MED LIST changes: +FLORANEX / LACT1 TAB PO; +LEVAQUIN500 MG PO; +MIRALAX17 GM PO; +NYSTATIN1 PWD TOPICAL; +ROBITUSSIN DM 110 ML PO
--- NOTE | 2016-10-10 19:30 | NUR ---
PATIENT IN SEMI-FOWLERS POSITION. BROUGHT PATIENT WATER PER HER REQUEST.
[2016-10-10 21:00] VITALS: BP 110/49
[2016-10-11] VITALS (7 sets, daily range): BP systolic 108–130; BP diastolic 49–60; Ht 152.4 cm; Wt 85.8 kg
[2016-10-11 05:29] LABS: BASOPHILS 0.4 % (0.0-2.0); EOSINOPHILS 0 % (0-7); HEMATOCRIT 37.4 % (36.0-48.0); HEMOGLOBIN 11.5 g/dL (12-16); IMMATURE GRANULOCYTES 0.7 % (0-5); LYMPHOCYTES 13.3 % (15-50); MCH 28.2 pg (26.0-34.0); MCHC 30.7 g/dL (31.0-37.0); MCV 91.7 fL (80.0-100.0); MEAN PLATELET VOLUME 9.5 fL (7.4-10.4); MONOCYTES 3.5 % (2-11); NEUTROPHILS 82.1 % (40-80); PLATELET COUNT 286 10x3/uL (130-400); RBC 4.08 10x6/uL (4.00-5.40); RDW 15.8 % (11.5-14.5)
[2016-10-11 05:33] LABS: WBC 5.5 10x3/uL (4.8-10.8)
[2016-10-11 05:39] LABS: ANION GAP 15.5 mmol/L (8-16); CALCIUM 8.9 mg/dL (8.5-10.1); CARBON DIOXIDE 24.7 mmol/L (21.0-32.0); CREATININE - SERUM 0.9 mg/dL (0.6-1.3); MAGNESIUM - SERUM 1.8 mg/dL (1.8-2.4); POTASSIUM - SERUM 4.2 mmol/L (3.5-5.1)
--- NOTE | 2016-10-11 07:00 | NUR ---
REPORT RECIEVED ASSUMED CARE. PATIENT IN BED WITH IV INTACT. NO COMPLAINTS. CALL LIGHT WITHIN REACH.
--- NOTE | 2016-10-11 18:55 | NUR ---
PATIENT IN BED WITH IV INTACT. NO COMPLAINTS. CALL LIGHT WITHIN REACH.
--- NOTE | 2016-10-11 19:35 | NUR ---
PATIENT IN SEMI-FOWLERS POSTION ON NEB TREATMENT. BROUGHT PATIENT A CUP OF ICE PER HER REQUEST. PATIENT DOES NOT NEED ANYTHING ELSE AT THIS TIME. BED IN LOWEST POSITION AND CALL LIGHT WITHIN REACH.
[2016-10-12 00:45] VITALS: BP 158/70
[2016-10-12 05:05] LABS: BASOPHILS 0.5 % (0.0-2.0); EOSINOPHILS 0 % (0-7); HEMATOCRIT 36.8 % (36.0-48.0); HEMOGLOBIN 11.6 g/dL (12-16); IMMATURE GRANULOCYTES 0.3 % (0-5); LYMPHOCYTES 17.9 % (15-50); MCH 28.6 pg (26.0-34.0); MCHC 31.5 g/dL (31.0-37.0); MCV 90.9 fL (80.0-100.0); MEAN PLATELET VOLUME 9.4 fL (7.4-10.4); MONOCYTES 9.6 % (2-11); NEUTROPHILS 71.7 % (40-80); PLATELET COUNT 322 10x3/uL (130-400); RBC 4.05 10x6/uL (4.00-5.40); RDW 15.3 % (11.5-14.5); WBC 5.9 10x3/uL (4.8-10.8)
[2016-10-12 05:45] LABS: ANION GAP 11.4 mmol/L (8-16); CALCIUM 9.2 mg/dL (8.5-10.1); CARBON DIOXIDE 29.2 mmol/L (21.0-32.0); CREATININE - SERUM 0.8 mg/dL (0.6-1.3); MAGNESIUM - SERUM 1.9 mg/dL (1.8-2.4); POTASSIUM - SERUM 3.6 mmol/L (3.5-5.1)
--- NOTE | 2016-10-12 07:00 | NUR ---
REPORT RECIEVED ASSUMED CARE. PATIENT IN BED WITH IV INTACT. NO COMPLAINTS AT THIS TIME. CALL LIGHT WITHIN REACH.
[2016-10-12 09:42] VITALS: BP 103/58
--- NOTE | 2016-10-12 12:30 | NUR ---
PATIENT SITTING UP IN BED EATING. NO PROBLEMS OR COMPLAINTS AT THIS TIME. CALL LIGHT WITHIN REACH.
--- NOTE | 2016-10-12 15:57 | NUR ---
PATIENT IN BED WITH IV INTACT. NO COMPLAINTS AT THIS TIME. NO DISTRESS AT THIS TIME. EYES CLOSED RESTING QUIETLY. CALL LIGHT WITHIN REACH.
[2016-10-12 17:20] VITALS: BP 132/63
--- NOTE | 2016-10-12 18:55 | NUR ---
PATIENT IN BED WITH IV INTACT. OXIMIZER ON AT 9 L. NO COMPLAINTS. CALL LIGHT WITHIN REACH.
[2016-10-12 19:00] VITALS: BP 125/54
--- NOTE | 2016-10-12 20:50 | NUR ---
PATIENT RESTING IN BED WATCHING TV. NO SIGNS OF DISTRESS NOTED. RESPIRATIONS EVEN AND UNLABORED. SCHEDULED MEDICATIONS GIVEN. PATIENT C/O PAIN AT IV SITE. SOME SWELLING NOTED AT SITE. IV DC'D. NEW IV STARTED TO LEFT FA ON FIRST ATTEMPT. TOLERATED WITHOUT COMPLAINTS. DENIES ANY NEEDS AT THIS TIME. BED LOW. CALL LIGHT IN REACH.
--- NOTE | 2016-10-12 21:52 | NUR ---
PATIENT RESTING IN BED. NO SIGNS OF DISTRESS NOTED. SCHEDULED MEDICATION GIVEN. ILEOSTOMY APPLIANCE CHANGED DUE TO LEAKAGE. NO NEEDS VOICED AT THIS TIME. BED LOW. CALL LIGHT IN REACH.
[2016-10-13] VITALS: BP 114/53
[2016-10-13 04:00] VITALS: BP 183/57
[2016-10-13 05:18] LABS: BASOPHILS 0.2 % (0.0-2.0); EOSINOPHILS 0 % (0-7); HEMATOCRIT 38.2 % (36.0-48.0); HEMOGLOBIN 11.9 g/dL (12-16); IMMATURE GRANULOCYTES 0.5 % (0-5); LYMPHOCYTES 20.6 % (15-50); MCH 28.6 pg (26.0-34.0); MCHC 31.2 g/dL (31.0-37.0); MCV 91.8 fL (80.0-100.0); MEAN PLATELET VOLUME 9.7 fL (7.4-10.4); MONOCYTES 8.9 % (2-11); NEUTROPHILS 69.8 % (40-80); PLATELET COUNT 363 10x3/uL (130-400); RBC 4.16 10x6/uL (4.00-5.40); RDW 15.3 % (11.5-14.5); WBC 6.4 10x3/uL (4.8-10.8)
[2016-10-13 05:45] LABS: ANION GAP 11.2 mmol/L (8-16); CALCIUM 8.8 mg/dL (8.5-10.1); MAGNESIUM - SERUM 1.8 mg/dL (1.8-2.4); POTASSIUM - SERUM 4.2 mmol/L (3.5-5.1)
--- NOTE | 2016-10-13 07:15 | NUR ---
AWAKE ALERT COLOR ADQ SKIN WARM AND DRY ATPRESENT DENIES ANY NEEDS AT THIS TIME PT REQ BRODERICK AT THIS TIME.
--- NOTE | 2016-10-13 07:30 | NUR ---
AWAKE ALERT ASKING FOR BRODERICK CATH 02 CONT VIA 6L OXISER AT PRESENT.
[2016-10-13 08:16] VITALS: BP 124/58
--- NOTE | 2016-10-13 09:56 | NUR ---
16 [address] C[address] TECH AT PRESENT ALANA WELL .
--- NOTE | 2016-10-13 10:06 | NUR ---
Patient Name: NELA HERNANDEZ Admission Status: Elective Accout number: [id number] Admission Date: 10-10-2016 : 1940 Admission Diagnosis:ACUTE AND CHRONIC RESPIRATORY FAILURE WITH HYPOXIA Attending: MANGO Current LOS: 3 Anticipated DC Date: 10-15-2016 Planned Disposition: Shelter Facility Primary Insurance: MEDICARE A & B Discharge Planning Comments: CM MET WITH PATIENT REGARDING D/C NEEDS AND PLANS. PATIENT STATED SHE LIVES ALONE AND HER DAUGHTER (MANJU) WILL PICK HER UP AT DISCHARGE. PATIENT STATED SHE HAS A RAMP TO ENTER HER HOME AND NO STAIRS INSIDE. PATIENT STATED SHE IS INDEPENDENT AT HOME AND USES A CANE - ALSO HAS A WALKER IF NEEDED. PATIENTS PCP IS DR. NEAL AND USES [facility]. PATIENT STATED SHE WANTS TO GO TO [facility] AT DISCHARGE. PATIENT SIGNED THE [facility] FORM AND REFERRAL WILL BE FAXED. CM WILL CONTINUE TO FOLLOW PATIENT WITH D/C NEEDS AND PLANS. PCP DR. NEAL [facility]- [phone] MANJU RIBERA (DAUGHTER) [phone] JOVANY ([facility]) [phone] Staff Registered Nurse: Lennie Bojorquez Is the patient Alert and Oriented? Yes 0 * How many steps to enter\exit or inside your home? RAMP 0 * PCP DR. NEAL 0 * Pharmacy [facility] 0 * Preadmission Environment Home Alone 0 * ADLs Independent 0 * Equipment Cane Walker 0 * Community resources currently utilized None 0 * Additional services required to return to the preadmission environment? Yes 0 * Can the patient safely return to the preadmission environment? Yes 0 * Has this patient been hospitalized within the prior 30 days at any hospital? No 0 Grand Total: 0
[2016-10-13 11:33] LABS: APPEARANCE SLT CLOUDY (CLEAR); BACTERIA FEW /hpf (NONE SEEN); BILIRUBIN NEGATIVE (NEGATIVE); COLOR YELLOW (YELLOW); GLUCOSE NEGATIVE (NEGATIVE); KETONE NEGATIVE (NEGATIVE); LEUKOCYTE ESTERASE 2+ (NEGATIVE); MUCUS <1+ /lpf (NONE SEEN); NITRITE NEGATIVE (NEGATIVE); PROTEIN NEGATIVE (NEGATIVE); SPECIFIC GRAVITY 1.015 (1.005-1.020); UROBILINOGEN NORMAL (NORMAL); WHITE CELLS - URINE 25-50 /hpf (0-5)
[2016-10-13 12:09] VITALS: BP 125/54
--- NOTE | 2016-10-13 12:30 | NUR ---
DAUGHTER AT BEDSIDE LUNCH TAKEN 75 AT PRESENT.
--- NOTE | 2016-10-13 14:00 | NUR ---
REPOSITIONED FOR COMFORT AT PRESENT.
[2016-10-13 15:37] VITALS: BP 135/70
--- NOTE | 2016-10-13 16:26 | NUR ---
SLEEPING QUIETLY AT PRESENT DENIES ANY NEEDS AT THIS TIME BRODERICK CAT INTAC AND DRAINING YELLOW URINE.
--- NOTE | 2016-10-13 17:47 | NUR ---
PT COUGHING AT PRESENT DRY REQ SOMETHING FOR COUGH.
[2016-10-13 19:00] VITALS: BP 128/60
--- NOTE | 2016-10-13 19:58 | NUR ---
PATIENT SITTING UP IN BED. NO SIGNS OF DISTRESS NOTED. SCHEDULED MEDICATIONS GIVEN. DENIES ANY NEEDS AT THIS TIME. BED LOW. CALL LIGHT IN REACH.
[2016-10-14 04:00] VITALS: BP 125/66
[2016-10-14 08:09] VITALS: BP 155/73
[2016-10-14 08:44] LABS: HEMATOCRIT 41.1 % (36.0-48.0); HEMOGLOBIN 13.4 g/dL (12-16); LYMPHOCYTES 23.5 % (15-50); MCH 28.9 pg (26.0-34.0); MCHC 32.6 g/dL (31.0-37.0); MEAN PLATELET VOLUME 9.1 fL (7.4-10.4); NEUTROPHILS 63.1 % (40-80); PLATELET COUNT 369 10x3/uL (130-400); RBC 4.64 10x6/uL (4.00-5.40); RDW 15.2 % (11.5-14.5); WBC 7.1 10x3/uL (4.8-10.8)
[2016-10-14 08:46] LABS: MCV 88.6 fL (80.0-100.0)
[2016-10-14 08:50] LABS: ANION GAP 14.6 mmol/L (8-16); CALCIUM 8.9 mg/dL (8.5-10.1); CARBON DIOXIDE 29.9 mmol/L (21.0-32.0); CREATININE - SERUM 0.8 mg/dL (0.6-1.3); MAGNESIUM - SERUM 1.7 mg/dL (1.8-2.4)
[2016-10-14 08:56] LABS: POTASSIUM - SERUM 3.5 mmol/L (3.5-5.1)
--- NOTE | 2016-10-14 09:11 | NUR ---
AT 0740 TOLD KURT ZARAGOZA THAT THE PULSE IS DOCUMENTED 166, ASKED IF HE COULD CHECK THE VITAL SIGN SHEET TO PUT IN AN ACCURATE READING. JUST VIEWED V/S IT APPEARS MILA CHANGED IT TO THE RESPIRATION RATE.
[2016-10-14 11:44] VITALS: BP 146/67
--- NOTE | 2016-10-14 13:12 | NUR ---
NUTRITION MONITORIING & EVAL CHART REVIEWED. PT TOLERATING DIABETIC DIET. 25 TO 100% INTAKE MEALS. RD FOLLOWING
[2016-10-14 15:55] VITALS: BP 130/70
--- NOTE | 2016-10-14 20:45 | NUR ---
PATIENT SITTING UP IN BED. NO SIGNS OF DISTRESS NOTED. SCHEDULED MEDICATION GIVEN. REFUSES TO TURN AT THIS TIME. DENIES ANY NEEDS. BED LOW. CALL LIGHT IN REACH
--- NOTE | 2016-10-15 03:00 | NUR ---
PATIENT SLEEPING IN SEMI-FOWLERS POSITION. NO VISIBLE SIGNS OF DISTERSS.
[2016-10-15 04:00] VITALS: BP 142/70
[2016-10-15 06:09] LABS: BASOPHILS 0.3 % (0.0-2.0); EOSINOPHILS 0 % (0-7); HEMATOCRIT 40.2 % (36.0-48.0); HEMOGLOBIN 12.5 g/dL (12-16); IMMATURE GRANULOCYTES 3.7 % (0-5); LYMPHOCYTES 16.4 % (15-50); MCH 28.4 pg (26.0-34.0); MCHC 31.1 g/dL (31.0-37.0); MEAN PLATELET VOLUME 9.4 fL (7.4-10.4); MONOCYTES 8.4 % (2-11); NEUTROPHILS 71.2 % (40-80); PLATELET COUNT 382 10x3/uL (130-400); RDW 15.5 % (11.5-14.5); WBC 6.8 10x3/uL (4.8-10.8)
[2016-10-15 06:17] LABS: MCV 91.4 fL (80.0-100.0)
[2016-10-15 06:20] LABS: ANION GAP 12.3 mmol/L (8-16); CALCIUM 8.9 mg/dL (8.5-10.1); CARBON DIOXIDE 31.9 mmol/L (21.0-32.0); CREATININE - SERUM 0.8 mg/dL (0.6-1.3); MAGNESIUM - SERUM 1.8 mg/dL (1.8-2.4)
[2016-10-15 06:22] LABS: POTASSIUM - SERUM 4.2 mmol/L (3.5-5.1)
[2016-10-15 07:58] VITALS: BP 158/77
--- NOTE | 2016-10-15 11:00 | NUR ---
REMINDED PATIENT ABOUT NEEDED TO TURN EVERY 2 HOURS TO PREVENT BED SORES, PATIENT VERBALIZED UNDERSTANDING, AND REFUSED TO TURN. PATIENT REFUSED SCDS. BED IN LOWEST POSITION, CALL LIGHT IN REACH. BED RIALS UP X'S 2. PATIENT WEARING OXYMIZER AT 8L/MIN. ICE WATER IN REACH. PAITENT DENIES NEEDS.
[2016-10-15 12:17] VITALS: BP 174/86
[2016-10-15 15:53] VITALS: BP 160/88
--- NOTE | 2016-10-15 17:14 | NUR ---
OT NOTE : PT COMPLETED UE POSITIONING OF RUE TO DECREASE EDEMA. PT COMPLETED BUE AROM FOR INCREASED I WITH ADLS. PT COMPLETED SIMPLE HYGIENE TASK WITH SET UP. THANK YOU, NURY ANDREA/Marlena
--- NOTE | 2016-10-15 19:00 | NUR ---
PATIENT SUPINE IN BED. HOB 40 DEGREES. AAOX4. RR EVEN AND UNLABORED. O2 @ 8L VIA OXYMIZER. 0 S/S OF DISTRESS. DENIES PAIN AT THIS TIME. IV TO LEFT AC PATENT WITH NO REDNESS OR SWELLING. BRODREICK DRAINING DARK YELLOW URINE TO GRAVITY AND SECURED WITH STATLOCK. TELEMETRY ON. B/A ON. SRX2. BED LOW. CALL LIGHT WITHIN REACH.
[2016-10-15 20:00] VITALS: BP 172/83
--- NOTE | 2016-10-15 21:50 | NUR ---
ASSESSMENT COMPLETE. NIGHTTIME MEDS GIVEN. 8 UNITS HUMALOG GIVEN FOR BS OF 222. NO OTHER NEEDS AT THIS TIME.
[2016-10-16] VITALS: BP 179/85
[2016-10-16 04:00] VITALS: BP 184/86
[2016-10-16 05:51] LABS: BASOPHILS 0.8 % (0.0-2.0); EOSINOPHILS 0 % (0-7); HEMATOCRIT 43.5 % (36.0-48.0); HEMOGLOBIN 13.5 g/dL (12-16); LYMPHOCYTES 15.1 % (15-50); MCH 28.5 pg (26.0-34.0); MEAN PLATELET VOLUME 9.6 fL (7.4-10.4); NEUTROPHILS 72.1 % (40-80); PLATELET COUNT 359 10x3/uL (130-400); RBC 4.73 10x6/uL (4.00-5.40); RDW 15.2 % (11.5-14.5)
[2016-10-16 06:02] LABS: WBC 8.7 10x3/uL (4.8-10.8)
[2016-10-16 06:25] LABS: ALBUMIN 2.9 g/dL (3.4-5.0); ALKALINE PHOSPHATASE 101 U/L (46-116); ALT (SGPT) 55 U/L (10-68); CALC OSMOLALITY 292 mosm/kg (275-300); CALCIUM 9.3 mg/dL (8.5-10.1); CARBON DIOXIDE 34.3 mmol/L (21.0-32.0); CHLORIDE - SERUM 101 mmol/L (98-107); CREATININE - SERUM 0.7 mg/dL (0.6-1.3); GLUCOSE 216 mg/dL (74-106); POTASSIUM - SERUM 3.7 mmol/L (3.5-5.1); SODIUM 141 mmol/L (136-145); UREA NITROGEN 27 mg/dL (7-18); eGFR NON AFRICAN AMERICAN 86 mL/min (90-120)
--- NOTE | 2016-10-16 07:30 | NUR ---
SLEEPING QUIETLY AT PRESENT 02 CONT AT 8L OXIMESIER AT PRESENT RESP EVEN AND UNLABORED AT PRESENT.BRODERICK CATH IN TACT AND DRAINING YELLOW URINE.
[2016-10-16 07:51] VITALS: BP 164/87
--- NOTE | 2016-10-16 09:00 | NUR ---
MEDS GIVEN ALANA WELL AT PRESENT N/C.
--- NOTE | 2016-10-16 11:00 | NUR ---
REMAINS UP IN CHAIR AT PRESENT N/C VOICED.
[2016-10-16 12:19] VITALS: BP 146/73
--- NOTE | 2016-10-16 12:50 | NUR ---
SITTING UP IN BED AT PRESENT DENIES ANY NEEDS AT PRESENT.
--- NOTE | 2016-10-16 14:35 | NUR ---
BACK IN BED TAKING UPDRAFT TX ALANA WELL AT PRESENT.
[2016-10-16 15:44] VITALS: BP 141/64
--- NOTE | 2016-10-16 16:45 | NUR ---
OT NOTE: PT COMPLETED BUE AAROM FOR INCREASED I. PT COMPLETED GROOMING WITH SETUP. THANK YOU, NURY ANDREA/Marlena
--- NOTE | 2016-10-16 18:37 | NUR ---
FLEETS ENEMA GIVEN ALANA WELL AT PRESENT.
--- NOTE | 2016-10-16 18:50 | NUR ---
IV DCD CATH INTACT SITE REDDENIV TO BE RESITED AT PRESENT PER PTS REQ.
--- NOTE | 2016-10-16 19:00 | NUR ---
PATIENT RESTING WITH EYES CLOSED. AROUSES TO VOICE. RR SHALLOW. O2 @ 8L VIA OXYMIZER. 0 S/S OF DISTRESS. DENIES PAIN AT THIS TIME. IV TO LEFT HAND PATENT WITH NO REDNESS OR SWELLING. BRODERICK SECURED WITH STATLOCK AND DRAINING TO GRAVITY. TELEMETRY ON. /A ON. SRX2. BED LOW. CALL LIGHT WITHIN REACH.
[2016-10-16 20:00] VITALS: BP 143/71
[2016-10-17] VITALS: BP 148/78
[2016-10-17 04:00] VITALS: BP 156/81
[2016-10-17 05:56] LABS: BASOPHILS 0.2 % (0.0-2.0); EOSINOPHILS 0 % (0-7); HEMOGLOBIN 14.4 g/dL (12-16); IMMATURE GRANULOCYTES 3.5 % (0-5); LYMPHOCYTES 11.1 % (15-50); MCH 28.7 pg (26.0-34.0); MCHC 31.3 g/dL (31.0-37.0); MCV 91.6 fL (80.0-100.0); MEAN PLATELET VOLUME 9.7 fL (7.4-10.4); MONOCYTES 8.5 % (2-11); NEUTROPHILS 76.7 % (40-80); PLATELET COUNT 417 10x3/uL (130-400); RBC 5.02 10x6/uL (4.00-5.40); RDW 15.1 % (11.5-14.5)
[2016-10-17 06:00] LABS: WBC 11.3 10x3/uL (4.8-10.8)
[2016-10-17 06:30] LABS: ALBUMIN 3.1 g/dL (3.4-5.0); ANION GAP 7.7 mmol/L (8-16); BILIRUBIN - TOTAL 0.7 mg/dL (0.2-1.3); CALCIUM 9.8 mg/dL (8.5-10.1); CARBON DIOXIDE 38.8 mmol/L (21.0-32.0); POTASSIUM - SERUM 3.5 mmol/L (3.5-5.1); PROTEIN - SERUM 7.2 g/dL (6.4-8.2)
[2016-10-17 06:31] LABS: CREATININE - SERUM 0.9 mg/dL (0.6-1.3)
--- NOTE | 2016-10-17 07:15 | NUR ---
IV STARTED IN RTH AT PRESENT WITH 22JELCO ALANA WELL AT PRESENT .REPOSTIONED IN BED AT PRESENT ALANA WELL AT PRESENT.
[2016-10-17 07:51] VITALS: BP 133/77
--- NOTE | 2016-10-17 09:00 | NUR ---
FAMILY AT BEDSIDE AT PRESENT DENIES ANY NEEDS AT PRESENT 02 CONT AT 8L OXISERMISER .
--- NOTE | 2016-10-17 11:00 | NUR ---
UP IN CHAIR AT PRESENT PER PT ALANA WELL AT PRESENT N/C AT PRESENT.
--- NOTE | 2016-10-17 12:16 | NUR ---
NUTRITION MONITORING & EVAL CHART REVIEWED. PT TOLERATING DIABETIC DIET. 50% INTAKE BREAKFAST. WILL CONTINUE TO PROVIDE DIET, MONITOR PO INTAKE. RD FOLLOWING
[2016-10-17 12:29] VITALS: BP 137/74
--- NOTE | 2016-10-17 13:00 | NUR ---
TAKING LIQS WELL AT PRESENT SLEEPING QUIETLY AT PRESENT DENIES ANY NEEDS AT PRESENT.
[2016-10-17 16:37] VITALS: BP 134/65; BP 152/51
--- NOTE | 2016-10-17 19:00 | NUR ---
STATUS REMAINS UNCGD AT PRESENT DENIES ANY NEEDS AT PRESENT.
--- NOTE | 2016-10-17 19:40 | NUR ---
PATIENT IN SEMI-FOWLERS POSITION. PATIENT DENIES NEEDS AT THIS TIME. PATIENT'S BED IN LOWEST POSTION AND CALL LIGHT WITHIN REACH.
--- NOTE | 2016-10-17 19:40 | NUR ---
PATIENT RESTING IN SEMI-FOWLERS POSTION. BROUGHT PATIENT WATER PER HER REQUEST. PATIENT DENIES OTHER NEEDS AT THIS TIME. PATIENT'S BED IN LOWEST POSTION AND CALL LIGHT WITHIN REACH.
[2016-10-17 20:00] VITALS: BP 133/75
[2016-10-18] VITALS: BP 145/80
[2016-10-18 04:00] VITALS: BP 151/82
[2016-10-18 05:04] LABS: BASOPHILS 0.1 % (0.0-2.0); EOSINOPHILS 0 % (0-7); HEMATOCRIT 44.9 % (36.0-48.0); HEMOGLOBIN 14.2 g/dL (12-16); IMMATURE GRANULOCYTES 3.7 % (0-5); LYMPHOCYTES 11.1 % (15-50); MCH 28.9 pg (26.0-34.0); MCHC 31.6 g/dL (31.0-37.0); MCV 91.3 fL (80.0-100.0); MEAN PLATELET VOLUME 9.7 fL (7.4-10.4); MONOCYTES 9.8 % (2-11); NEUTROPHILS 75.3 % (40-80); PLATELET COUNT 363 10x3/uL (130-400); RBC 4.92 10x6/uL (4.00-5.40); RDW 15.1 % (11.5-14.5)
[2016-10-18 05:36] LABS: ALBUMIN 3.1 g/dL (3.4-5.0); ANION GAP 6.9 mmol/L (8-16); BILIRUBIN - TOTAL 0.63 mg/dL (0.2-1.3); CALCIUM 9.4 mg/dL (8.5-10.1); CARBON DIOXIDE 40.3 mmol/L (21.0-32.0); CREATININE - SERUM 0.8 mg/dL (0.6-1.3); POTASSIUM - SERUM 4.2 mmol/L (3.5-5.1); PROTEIN - SERUM 7.2 g/dL (6.4-8.2)
--- NOTE | 2016-10-18 06:20 | NUR ---
PAGED DR. FINCH ABOUT CO2 40.3
--- NOTE | 2016-10-18 07:30 | NUR ---
RECIEVED PT DURING WALKING ROUNDS. PT RESTING IN BED WITH NO COMPLAINTS AT THIS TIME. ASSESSMENT DONE PER FLOWSHEET. BED IN LOW POSTION AND CALL LIGHT WITHIN REACH. WILL CONTINUE TO MONTIOR.
--- NOTE | 2016-10-18 07:50 | NUR ---
PATIENT ALERT IN MID ANDRADE POSITION. RESPIRATIONS EVEN AND UNLABORED. GAVINO NURSE AID AT BEDSIDE. SIDE RAILS UP X2. BED IN LOW POSITION. CALL LIGHT IN REACH.
[2016-10-18 08:28] VITALS: BP 147/65
--- NOTE | 2016-10-18 11:30 | NUR ---
SPOKE WITH AT THIS TIME ABOUT PT RECIEVING MEDICAITON FOR INDIGESTION. RECIEVED ORDERS FOR PROTONIX 40MG ONE TIME NOW. WILL ADMINISTER MEDICATION PER ORDER.
--- NOTE | 2016-10-18 11:50 | NUR ---
SPOKE WITH DR. FINCH WHEN SHE ARRIVED TO THE FLOOR ABOUT PT CRITICAL CO2. STATED SHE WOULD LOOK AT PT CHART AND PLACE ORDERS NEEDED. PT RESTING IN BED AT THIS TIME. WILL CONTINUE TO IVANA.
[2016-10-18 12:00] VITALS: BP 140/58
[2016-10-18 16:03] VITALS: BP 136/69
--- NOTE | 2016-10-18 19:33 | NUR ---
PATIENT RESTING IN SEMI-FOWLERS POSITION. PATIENT DENIES NEEDS AT THIS TIME. PATIENT'S BED IN LOWEST POSITION AND CALL LIGHT WITHIN REACH.
[2016-10-18 20:00] VITALS: BP 134/76
[2016-10-19] VITALS (7 sets, daily range): BP systolic 125–162; BP diastolic 50–88
[2016-10-19 05:14] LABS: BASOPHILS 0.3 % (0.0-2.0); EOSINOPHILS 0 % (0-7); HEMATOCRIT 45.9 % (36.0-48.0); HEMOGLOBIN 14.6 g/dL (12-16); IMMATURE GRANULOCYTES 2.3 % (0-5); LYMPHOCYTES 11.3 % (15-50); MCHC 31.8 g/dL (31.0-37.0); MCV 91.3 fL (80.0-100.0); MEAN PLATELET VOLUME 10.6 fL (7.4-10.4); MONOCYTES 8.3 % (2-11); NEUTROPHILS 77.8 % (40-80); RBC 5.03 10x6/uL (4.00-5.40); RDW 15.2 % (11.5-14.5); WBC 11.5 10x3/uL (4.8-10.8)
[2016-10-19 05:16] LABS: PLATELET COUNT 227 10x3/uL (130-400)
[2016-10-19 05:41] LABS: ALBUMIN 3.2 g/dL (3.4-5.0); ANION GAP 11.6 mmol/L (8-16); BILIRUBIN - TOTAL 0.8 mg/dL (0.2-1.3); CALCIUM 9.6 mg/dL (8.5-10.1); CARBON DIOXIDE 36.1 mmol/L (21.0-32.0); CREATININE - SERUM 0.8 mg/dL (0.6-1.3); POTASSIUM - SERUM 3.7 mmol/L (3.5-5.1); PROTEIN - SERUM 7.3 g/dL (6.4-8.2)
--- NOTE | 2016-10-19 07:40 | NUR ---
PATIENT RESTING IN BED WITH HER EYES CLOSED. PATIENT AWAKENS TO VERBAL STIMULI. PATIENT IS ALERT AND ORIENTED X4. IV SITE PATENT WITHOUT ANY S/S OF INFECTION IN PATIENT'S RIGHT HAND. ASSESSMENT COMPLETED PER FLOWSHEET. TELEMETRY IN PLACE AND SHOWING SINUS RHYTHM WITH A RATE OF 84. OXYGEN AT 4L PER NC. PATIENT DENEIS ANY NEEDS AT PRESENT TIME. CALL LIGHT IN PATIENT'S REACH. WILL MONITOR.
--- NOTE | 2016-10-19 20:27 | NUR ---
SITTING UP IN BED WATCHING TV. NO SIGNS OF DISTRESS NOTED. SCHEDULED MEDICATIONS GIVEN ORDERED. DENIES NEEDS AT THIS TIME. BED LOW. CALL LIGHT IN REACH
--- NOTE | 2016-10-19 23:11 | NUR ---
PT LAYING IN BED NO DISTRESS OBSERVED CALL LIGHT IN REACH SRX2 BED LOW AND LOCKED WILL MONITOR
[2016-10-20 05:39] LABS: BASOPHILS 0.1 % (0.0-2.0); EOSINOPHILS 0 % (0-7); HEMATOCRIT 44.8 % (36.0-48.0); HEMOGLOBIN 13.8 g/dL (12-16); IMMATURE GRANULOCYTES 2.4 % (0-5); LYMPHOCYTES 12.1 % (15-50); MCH 28.3 pg (26.0-34.0); MCHC 30.8 g/dL (31.0-37.0); MEAN PLATELET VOLUME 10.4 fL (7.4-10.4); MONOCYTES 5.8 % (2-11); NEUTROPHILS 79.6 % (40-80); RBC 4.87 10x6/uL (4.00-5.40); WBC 11.2 10x3/uL (4.8-10.8)
[2016-10-20 05:52] LABS: PLATELET COUNT 287 10x3/uL (130-400)
[2016-10-20 06:02] LABS: BILIRUBIN - TOTAL 0.7 mg/dL (0.2-1.3); CALCIUM 9.4 mg/dL (8.5-10.1); CREATININE - SERUM 0.8 mg/dL (0.6-1.3); PROTEIN - SERUM 7.1 g/dL (6.4-8.2)
[2016-10-20 08:10] VITALS: BP 141/69
--- NOTE | 2016-10-20 09:00 | NUR ---
ASSESSMENT PER FLOW SHEET.PT WITHOUT DISTRESS.DECLINES TO TURN ALL THE WAY OVER.BUTTOCKS RED WITH POSSIBLE EXCORIATION.MONITOR FOR NEEDS
--- NOTE | 2016-10-20 10:30 | NUR ---
UP IN CHAIR WITH PT.
[2016-10-20 11:31] VITALS: BP 133/76
--- NOTE | 2016-10-20 13:00 | NUR ---
PAINMEDS PER MAR ORDERED
[2016-10-20 16:26] VITALS: BP 169/40
--- NOTE | 2016-10-20 17:53 | NUR ---
OT NOTE: PT COMPLETED HYGIENE TASK WITH SET UP WITH LUE. PT COMPLETED LUE AROM EXS FOR INCREASED STRENGTH. PT COMPLETED BED MOB WITH MIN A. THANK YOU, NURY ANDREA/Marlena
--- NOTE | 2016-10-20 19:00 | NUR ---
REMAINS WITHOUT NEEDS,WITHOUT DISTRESS.CONT PLAN OF CARE
--- NOTE | 2016-10-20 20:00 | NUR ---
ASSESSMENT PER FLOWSHEET. IV RT AC SALINE LOCKED. SITE CLEAR. TELM. SHOWS SR WITH HR 77. O2 ON 4L/M PER NC NO DISTRESS NOTED. BRODERICK TO BS DRAINAGE WITH YELLOW URINE.SR UP X2 CALL LIGHT WITHIN REACH.
[2016-10-20 21:00] VITALS: BP 121/64
--- NOTE | 2016-10-20 21:15 | NUR ---
MEDS GIVEN PER MAR. WDPJ=[id number]. HUMALOG INSULIN 4 UNITS GIVEN SUBC PER S/S.
--- NOTE | 2016-10-20 22:00 | NUR ---
REPOSITIONED IN BED SR UP X2 CALL LIGHT WITHIN REACH.
--- NOTE | 2016-10-21 | NUR ---
EYES CLOSED RESPIRATIONS WITH EASE AND UNLABORED.
[2016-10-21 01:00] VITALS: BP 131/62
--- NOTE | 2016-10-21 01:52 | NUR ---
RESTING QUIETLY DENIES NEEDS. BODY IN GOOD ALIGNMENT.
--- NOTE | 2016-10-21 04:11 | NUR ---
RESTING QUIETLY VS TAKEN REPOSITIONED IN BED SR UP X2 CALL LIGHT WITHIN REACH.
[2016-10-21 05:00] VITALS: BP 121/72
[2016-10-21 06:04] LABS: BASOPHILS 0.1 % (0.0-2.0); EOSINOPHILS 0.1 % (0-7); HEMATOCRIT 44.5 % (36.0-48.0); HEMOGLOBIN 13.8 g/dL (12-16); IMMATURE GRANULOCYTES 2.9 % (0-5); LYMPHOCYTES 14.9 % (15-50); MCH 28.5 pg (26.0-34.0); MCV 91.8 fL (80.0-100.0); MEAN PLATELET VOLUME 10.4 fL (7.4-10.4); RBC 4.85 10x6/uL (4.00-5.40); RDW 14.8 % (11.5-14.5)
[2016-10-21 06:07] LABS: PLATELET COUNT 228 10x3/uL (130-400); WBC 14.3 10x3/uL (4.8-10.8)
[2016-10-21 06:35] LABS: ALBUMIN 3.1 g/dL (3.4-5.0); ALKALINE PHOSPHATASE 113 U/L (46-116); ALT (SGPT) 68 U/L (10-68); CALC OSMOLALITY 291 mosm/kg (275-300); CALCIUM 9.2 mg/dL (8.5-10.1); CARBON DIOXIDE 38.3 mmol/L (21.0-32.0); CHLORIDE - SERUM 100 mmol/L (98-107); CREATININE - SERUM 0.6 mg/dL (0.6-1.3); GLUCOSE 108 mg/dL (74-106); POTASSIUM - SERUM 3.6 mmol/L (3.5-5.1); PROTEIN - SERUM 6.5 g/dL (6.4-8.2); SODIUM 143 mmol/L (136-145); UREA NITROGEN 28 mg/dL (7-18); eGFR NON AFRICAN AMERICAN > 90 mL/min (90-120)
--- NOTE | 2016-10-21 07:25 | NUR ---
SLEEPING QUIETLY AT PRESENT RESP EVEN AND UNLABORED AT PRESENT SL PATENT IN RT AC.BRODERICK CATH INTACT AND DRAINING YELLOW URINE AT PRESENT.02 CONT AT 4L N/C AT PRESENT.
[2016-10-21 09:23] VITALS: BP 127/64
--- NOTE | 2016-10-21 09:30 | NUR ---
MEDS GIVEN ALANA WELL AT PRESENT WATCHING TV QUIETLY.
--- NOTE | 2016-10-21 10:00 | NUR ---
UP TO BEDSIDE COMMODE WITH HELP ALANA WELL AT PRESENT.
--- NOTE | 2016-10-21 11:02 | NUR ---
NUTRITION MONITORING & EVAL CHART REVIEWED. TOLERATING DIABETIC DIET WITH 100% INTAKE BREAKFAST. WILL CONTINUE TO PROVIDE DIET, MONITOR PT PROGRESS. RD FOLLOWING
[2016-10-21] MEDS ORDERED: SINGULAIR10 MG PO (11:31)
[2016-10-21] MEDS ORDERED: DALIRESP500 MCG PO (11:31)
[2016-10-21] MEDS ORDERED: PREDNISONE20 MG PO ×2 (11:32→14:31)
[2016-10-21] MEDS ORDERED: DULCOLAX10 MG/SUPP RC (11:32)
[2016-10-21 11:47] VITALS: BP 109/52
--- NOTE | 2016-10-21 12:00 | NUR ---
QUIET IN ROOM AT PRESENT DENIES ANY NEEDS AT PRESENT.
--- NOTE | 2016-10-21 13:13 | NUR ---
CM REASSESSMENT NOTE: PATIENT HAS BEEN ACCEPTED TO [facility] TO A SKILLED BED. PATIENT WILL DISCHARGE TODAY (BETWEEN 3-4) BY FACILITY VAN WITH OXYGEN SUPPLIED FOR PATIENT. PATIENT SIGNED THE [facility] D/C NOTICE.
--- NOTE | 2016-10-21 15:25 | NUR ---
LEFT VIA W/C BRODERICK CATH IN PLACE IV DCD CATH IN TACT AT PRESENT RT ARM REMAINS VERY BRUISED FROM PREVIOUS SURG CLEAN DRY INTACT OLD INCISION.02 REMAINS AT 4L N/C AT PRESENT.
--- NOTE | 2016-10-24 12:39 | CN ---
PATIENT NAME:NELA HERNANDEZ MEDICAL RECORD: [id number] : 38 LOCATION:[id number] ADMIT DATE: 10/10/16 ACCOUNT: [id number] CONSULTING PHYSICIAN: DELMIS DO MD REFERRING PHYSICIAN: PRAVEEN ROSSI MD DATE OF CONSULTATION: 10/10/2016 Pulmonary Consultation REQUESTING PHYSICIAN: Dr. Praveen Rossi. REASON FOR CONSULTATION: Acute exacerbation of chronic obstructive pulmonary disease and dyspnea. HISTORY OF PRESENT ILLNESS: Ms. Hernandez is a 76-year-old female, very well known to us from previous admission. Ms. Hernandez was there for rehab after her orthopedic surgery. She does have atelectasis, possible pneumonia in the right lower lobe. She underwent bronchoscopy. The pleural fluid persisted, but the thoracentesis was not carried out because there is not enough fluid to aspirate. According to the patient, she did fairly, but today she had worsening shortness of breath. She started wheezing. She is coughing. There are no fever and chills and no night sweats. REVIEW OF SYSTEMS: Mainly in the history of present illness. PAST MEDICAL HISTORY: 1. Congestive heart failure, diastolic dysfunction. 2. History of transient ischemic attack and neuropathy. 3. Type 2 diabetes mellitus. 4. Hypertension. PAST SURGICAL HISTORY: 1. Cholecystectomy. 2. Knee surgery. 3. Cardiac catheterization and also she has a stent placement in the lower extremity. She has a fixation of humeral neck surgery in September of this year. PERSONAL AND SOCIAL HISTORY: The patient is an ex-smoker. She is a nondrinker. FAMILY HISTORY: Significant for her parent who has a cancer. PHYSICAL EXAMINATION: GENERAL: Now, the patient is lying comfortably in bed. She is not in acute distress. She is wearing nasal cannula oxygen. VITAL SIGNS: The blood pressure is 102/62, pulse is 100, respiration is 18-20 and SpO2 is 95% on oxymizer. HEENT: Conjunctivae pink, sclerae nonicteric. NECK: Supple, no JVD. CHEST: There is prolonged expiration with wheezing. There is dullness on percussion at the right base. HEART: Rate and rhythm regular. Normal sound. There is grade II/ systolic murmur. ABDOMEN: Soft, bowel sounds present. No hepatosplenomegaly. RECTAL: Deferred. EXTREMITIES: No cyanosis, no clubbing. There is 1+ pedal edema. CONSULT REPORT [id number] NELA HERNANDEZ SKIN: Warm, normal turgor. CENTRAL NERVOUS SYSTEM: The patient is awake and alert. There is no obvious cranial nerve abnormality. The gait was not tested. IMAGING: Chest radiograph on 10/10/2016, there was atelectasis in the right lower lobe. This looked like it is getting a bit worse. LABORATORY DATA: Pending. IMPRESSION: 1. Nkulm-fk-jhnrfqh hypoxic respiratory failure. 2. Acute exacerbation of chronic obstructive pulmonary disease. 3. Pneumonia, right lower lobe, most likely consistent with hospital-acquired pneumonia. 4. Right pleural effusion, parapneumonic. 5. Congestive heart failure, chronic diastolic dysfunction with EF of 50%. 6. Diabetes mellitus. 7. History of transient ischemic attack. 8. History of chronic urinary tract infection. RECOMMENDATIONS: 1. We will start her on vancomycin, Levaquin and cefepime to cover for Gram-negative rods as well as MRSA, hospital-acquired pneumonia. 2. We will start her on methylprednisolone IV, albuterol/ipratropium nebulizer, Brovana and budesonide nebulizer and montelukast. Start her on Lasix 40 mg b.i.d. Check the CT scan of the chest. We will use the nebulizer with IPPB as well as a flutter valve q.2 hourly when awake. 3. DVT prophylaxis. Dr. Rossi, once again thanks for involving me in the care of Ms. Hernandez. The critical care time was 40 minutes. TRANSINT:[id number] Voice Confirmation ID: [id number] DOCUMENT ID: [id number] DELMIS DO MD at 1239 CC: PRAVEEN ROSSI MD [id number] DICTATION DATE: 10/10/161924 CAMPUS WELLNESS COORDINATOR: 10/11/16 0204 DIS IN 10/21/16 [id number] [place] [address]
== END 2016-10-21 16:03 | DRG 189 ==
LOC: D.MS 19:01
PROVIDERS: Emergency Medicine; Family Medicine; Internal Medicine Pulmonary Disease; ADMIT Emergency Medicine
DX: J96.21 Acute and chronic respiratory failure with hypoxia (principal); J18.9 Pneumonia, unspecified organism; J44.1 Chronic obstructive pulmonary disease with (acute) exacerbation; I50.32 Chronic diastolic (congestive) heart failure; J90 Pleural effusion, not elsewhere classified; J98.11 Atelectasis; I47.2 Ventricular tachycardia; Y95 Nosocomial condition; S42.293D Other displaced fracture of upper end of unspecified humerus, subsequent encounter for fracture with routine healing; E11.9 Type 2 diabetes mellitus without complications; Z86.73 Personal history of transient ischemic attack (TIA), and cerebral infarction without residual deficits; I07.1 Rheumatic tricuspid insufficiency; K59.00 Constipation, unspecified; I73.9 Peripheral vascular disease, unspecified; I10 Essential (primary) hypertension

== ENCOUNTER 2016-11-05 17:15 | Inpatient (IN) | payer MEDICARE, BC ==
[~2016-11-05] VITALS: Ht 152.4 cm; Wt 75.9 kg
[~2016-11-05 17:15] MED LIST changes: +DALIRESP500 MCG PO; +DULCOLAX10 MG/SUPP RC; +PREDNISONE20 MG PO; +SINGULAIR10 MG PO
[2016-11-05 18:15] LABS: HEMATOCRIT 47.8 % (36.0-48.0); HEMOGLOBIN 15.4 g/dL (12-16); MCH 28.6 pg (26.0-34.0); MCHC 32.2 g/dL (31.0-37.0); MCV 88.8 fL (80.0-100.0); RBC 5.38 10x6/uL (4.00-5.40); RDW 16.6 % (11.5-14.5); WBC 23.7 10x3/uL (4.8-10.8)
[2016-11-05 18:22] LABS: ANION GAP 17.5 mmol/L (8-16); BILIRUBIN - TOTAL 0.6 mg/dL (0.2-1.3); CALCIUM 8.9 mg/dL (8.5-10.1); CARBON DIOXIDE 23.4 mmol/L (21.0-32.0); CREATININE - SERUM 2.4 mg/dL (0.6-1.3); POTASSIUM - SERUM 3.9 mmol/L (3.5-5.1); PROTEIN - SERUM 5.7 g/dL (6.4-8.2)
[2016-11-05 18:24] LABS: MEAN PLATELET VOLUME 10.3 fL (7.4-10.4); PLATELET COUNT 282 10x3/uL (130-400)
[2016-11-05 18:33] LABS: EOSINOPHILS 5 % (0-7); LYMPHOCYTES 11 % (15-50); MONOCYTES 3 % (2-11); NEUTROPHILS 81 % (40-80); PLATELET ESTIMATE NORMAL
[2016-11-05 18:53] LABS: APPEARANCE HAZY (CLEAR); COLOR YELLOW (YELLOW); GLUCOSE NEGATIVE (NEGATIVE); LEUKOCYTE ESTERASE 2+ (NEGATIVE); NITRITE NEGATIVE (NEGATIVE); PROTEIN NEGATIVE (NEGATIVE); SPECIFIC GRAVITY 1.015 (1.005-1.020)
[2016-11-05 18:54] LABS: BILIRUBIN NEGATIVE (NEGATIVE); KETONE NEGATIVE (NEGATIVE); UROBILINOGEN NORMAL (NORMAL)
[2016-11-05 19:06] LABS: BACTERIA MANY /hpf (NONE SEEN); EPITHELIAL CELLS 0-5 /hpf (0-5); RED CELLS - URINE 0-5 /hpf (0-5); WHITE CELLS - URINE >50 /hpf (0-5)
--- NOTE | 2016-11-05 21:50 | NUR ---
REC'D FROM ER DEPT PER STRETCHER TO ROOM 2213 WITH ER PERSONNEL AND FAMILY MEMBERS PRESENT. IV PATENT RT CHEST OF VANCOMYCIN INFUSING. PLACED ON BIPAP MACHINE. O2 SATS=92%. HOB UP 45 DEGREES. PT IS LETHARGIC NON VERBAL NO RESPONSE TO PAIN OR VERBAL STIMULI. SR UP X2 CALL LIGHT WITHIN REACH. PT IS DNR.
--- NOTE | 2016-11-05 22:30 | NUR ---
ATTEMPTS MADE FOR ABG'S UNABLE TO OBTAIN. ONE SET DONE IN ER DEPT.
--- NOTE | 2016-11-05 22:45 | NUR ---
ALL FAMILY MEMBERS PRESENT FULLY AWARE OF PT'S POOR PROGNOSIS REQUESTING BIPAP MACHINE BE REMOVED AND TO BE PLACED ON O2 AT 4L/M PER NC. BIPAP WAS REMOVED.
[2016-11-05 23:10] VITALS: BP 89/57; Ht 152.4 cm; Wt 75.9 kg
[2016-11-05] MEDS ORDERED: PLAVIX75 MG PO (23:34)
[2016-11-06] VITALS: BP 90/57
--- NOTE | 2016-11-06 00:05 | NUR ---
PATIENT DAUGHTER ASKED TO REMOVE THE BIPAP AT 2244 AND TO PUT PATIENT ON COMFORT CARE, PATIENT IS ON 4L NASAL CANNULA RN RADHA KELLY IS AWARE OF THE DECISION COMFORT MEASURES ONLY
--- NOTE | 2016-11-06 00:05 | NUR ---
NOTIFIED ROWDY AGEE AGRICULTURAL PLOW OPERATOR OF FAMILY'S DECISION FOR NO BIPAP. WAS GIVEN UPDATE OF PATIENT'S PHYSICAL ASSESSMENT, MED ORDERS AND ALL OTHER ORDERS. COMFORT CARE IMPLIMENTED.
--- NOTE | 2016-11-06 00:52 | NUR ---
FAMILY REQUESTING PAIN MED. PT HAVING A FROWN ON HER FOREHEAD IF IN PAIN. FAMILY RATES PAIN A POSSIBLE 6. MORPHINE 4 MG IVP SLOWLY GIVEN FOR PAIN CONTROL.
--- NOTE | 2016-11-06 02:19 | NUR ---
PT LETHARGIC EYES CLOSED RESPIRATIONS LABORED. O2 SAT=86% ON 4L/M PER NC. FAMILY MEMBERS AT BEDSIDE.
--- NOTE | 2016-11-06 04:56 | NUR ---
FAMILY REQUESTING PAIN MED FOR PT DISCOMFORT. MORPHINE 4MG IVP SLOWLY GIVEN FOR PAIN CONTROL.
--- NOTE | 2016-11-06 07:15 | NUR ---
FAMILY CALLS NURSE INTO ROOM NO PULSE NO RESPIRATIONS NO B/P. FAMILY MEMBERS IN ROOM. NOTIFIED DR. BAILEY OF PT'S . WILL HAVE ER DOCTOR TO COME PRONOUNCE PATIENT.
--- NOTE | 2016-11-06 08:45 | NUR ---
[facility] HERE TO REMOVE REMAINS FAMILY AT BEDSIDE PRONOUNCED PER ER DOCTOR AT 0730 AUGUSTO NOTIFIED PER CATHODE RAY [employer]UBE ASSEMBLER NO DONATION.
== END 2016-11-06 10:26 | DRG 189 ==
LOC: D.ER 17:15 → D.MS 20:22
PROVIDERS: Physician Assistant Medical; ADMIT Family Medicine
DX: J96.00 Acute respiratory failure, unspecified whether with hypoxia or hypercapnia (principal); J44.1 Chronic obstructive pulmonary disease with (acute) exacerbation; I69.351 Hemiplegia and hemiparesis following cerebral infarction affecting right dominant side; N17.9 Acute kidney failure, unspecified; N39.0 Urinary tract infection, site not specified; I10 Essential (primary) hypertension; L89.302 Pressure ulcer of unspecified buttock, stage 2; Z66 Do not resuscitate; E11.65 Type 2 diabetes mellitus with hyperglycemia; E11.40 Type 2 diabetes mellitus with diabetic neuropathy, unspecified; I25.10 Atherosclerotic heart disease of native coronary artery without angina pectoris